=== PATIENT | male | born 1975 | race Caucasian/White ===

== ENCOUNTER 2018-01-06 07:32 | Inpatient (IN) | payer MEDICAID ==
--- NOTE | 2018-01-06 07:48 | ED Physician Chart ---
ED Chief Complaint/HPI - Patient Information Date Seen:: 01/06/18 Time Seen:: 07:35 Chief Complaint:: altered level of consciousness History of Present Illness:: Patient was found in a parking lot with pinpoint pupils and decreased respirations. Patient admits to injecting heroin. Patient was given 2 mg of Narcan intramuscularly and when an IV was started 2 mg of Narcan intravenously Historian:: Patient, Other (granulator tender) Review:: Nurse's Note Reviewed ED Review of Systems - Review of Systems General/Constitutional: No fever, No chills, No weight loss, No weakness, No diaphoresis, No edema, No loss of appetite Skin: No skin lesions, No rash, No bruising Head: No headache, No light-headedness Eyes: No loss of vision, No pain, No diplopia ENT: No earache, No nasal drainage, No sore throat, No tinnitus Neck: No neck pain, No swelling, No thyromegaly, No stiffness, No mass noted Cardio Vascular: No chest pain, No palpitations, No PND, No orthopnea, No edema Pulmonary: No SOB, No cough, No sputum, No wheezing GI: No nausea, No vomiting, No diarrhea, No pain, No melena, No hematochezia, No constipation, No hematemesis G/U: No dysuria, No frequency, No hematuria Musculoskeletal: No bone or joint pain, No back pain, No muscle pain Endocrine: No polyuria, No polydipsia Psychiatric: No prior psych history, No depression, No anxiety, No suicidal ideation Hematopoietic: No bruising, No lymphadenopathy Allergic/Immuno: No urticaria, No angioedema Neurological: No syncope, No focal symptoms, Weakness, No paresthesia, No headache, No seizure, No dizziness, No confusion, No vertigo ED Past Medical History - Past Medical History Past Medical History: No significant medical hx Family History: None Social History: Smoker, Alcohol, Illicit Drug Use Surgical History: None Medication: None Family Medical History - Family Member Mother History Unknown: Yes ED Physical Exam - Physical Examination General/Constitutional: Awake, Well-developed, well-nourished Other Gen/Cons comments:: Moaning; disheveled Head: Atraumatic Eyes: Lids, conjuctiva normal Skin: Nl inspection ENMT: External ears, nose nl, Lips, teeth, gums nl Other Neck comments:: 75 forward flexion of the neck Respiratory: Nl effort/Exclusion, Clear to Auscultation Cardio Vascular: RRR GI: No tenderness/rebounding/guarding, No organomegaly : No CVA tenderness Extremities: No edema Neuro/Psych: No focal deficits Misc: No paraspinal tenderness ED Labs/Radiology/EKG Results - Lab Results Results: Laboratory Results - last 24 hr 01/06/18 01/06/18 01/06/18 07:55 07:55 07:55 WBC 14.9 H RBC 4.79 Hgb 14.3 Hct 43.4 MCV 90.7 MCH 30.0 MCHC Differential 33.0 RDW 13.0 Plt Count 333 MPV 8.0 Band Neutrophils % 10 Neutrophils (Manual) 79 Lymphocytes 5 L Monocytes 6 Platelet Estimate ADEQUATE Sodium 139 Potassium 5.3 H Chloride 100 Carbon Dioxide 23.4 Anion Gap 20.9 H BUN 29 H Creatinine 2.2 H Est GFR ( Amer) 42.8 Est GFR (Non-Af Amer) 35.4 BUN/Creatinine Ratio 13.2 Glucose 88 Whole Bld Lactic Acid 5.04 H* Calcium 8.9 Ethyl Alcohol < 10 - Radiology Results Results: Increased markings left upper lobe ED Assessment - Assessment General Assessment: Patient remained lethargic throughout the emergency department stay. He could barely signed the consent for doing an LP. Patient was placed in the left lateral decubitus position with knees, hips, thighs flexed. Low back was prepped 3 with Betadine solution. 1% Xylocaine about 12 mL is used for local anesthesia in the fourth-fifth lumbar interspace. The lumbar puncture needle was introduced and clear spinal fluid returned. Opening pressure was 20 cm and in tube 1 and the spinal fluid was clear . From tubes to 2-4 the spinal fluid returned increasingly pink in color. ED Septic Shock - . Is Septic Shock (SBP<90, OR Lactate>4 mmol\L) present?: No ED Reassessment (Disposition) - Reassessment Reassessment:: Patient remained lethargic during his stay in the emergency department. No etiology of his lethargy and leukocytosis is a 3 and she had undetermined. Spinal fluid in tube 1 was clear and opening pressure was normal so he does not appear to have meningitis. Reexamination of the abdomen at 1035 revealed present bowel some. The abdomen was soft without guarding but he appeared to have mild generalized tenderness. Chest x-ray showed possible early left upper lobe pneumonia... One contributing factor for the patient's increased lactic acid level is his decreased respirations after injecting heroin which will lead to increased anaerobic metabolism and therefore to lactic acidosis. - Diagnosis Diagnosis:: Altered mental status; heroin use; leukocytosis; lactic acidosis - Patient Disposition Admitted to:: ICU Spoke to:: Charly Lawson Admitting Medical Physician:: Charly Lawson Condition at Disposition:: Stable, Unchanged
[2018-01-06 08:15] LABS: HEMATOCRIT 43.4 % (41.0-60); HEMOGLOBIN 14.3 gm/dL (12-16); MEAN CELL VOLUME 90.7 fl (80-99); PLATELET COUNT 333 Th/cmm (150-400); RED BLOOD COUNT 4.79 Mil/cmm (4.30-5.70)
[2018-01-06 08:19] LABS: ANION GAP 20.9 (7.0-16.0); BUN - UREA NITROGEN 29 mg/dL (7-25); CALCIUM SERUM 8.9 mg/dL (8.6-10.3); CARBON DIOXIDE 23.4 mEq/L (21.0-31.0); CHLORIDE 100 mEq/L (98-107); CREATININE - SERUM 2.2 mg/dL (0.7-1.3); GFR AFRICAN-AMERICAN 42.8 ml/min (>90); GFR NON AFRICAN-AMERICAN 35.4 ml/min; GLUCOSE 88 mg/dL (70-105); POTASSIUM SERUM 5.3 mEq/L (3.5-5.1); SODIUM SERUM 139 mEq/L (136-145)
[2018-01-06 08:20] LABS: WHITE BLOOD COUNT 14.9 Th/cmm (4.8-10.8)
[2018-01-06 08:21] LABS: MANUAL DIFF REQUIRED? YES
[2018-01-06 08:44] LABS: BAND NEUTROPHILE 10 % (0-10); LYMPHOCYTE 5 % (20-50); MONOCYTE 6 % (2-10); NEUTROPHILS 79 % (40-80); PLATELET ESTIMATE ADEQUATE (NORMAL); TOTAL CELLS COUNTED 100
[2018-01-06] MEDS ORDERED: Sodium Chloride 0.9% 1,000 ML IV ONE (08:45)
--- NOTE | 2018-01-06 09:39 | Diagnostic Imaging Report ---
CHEST X-RAY: AP view INDICATION: Pneumonia COMPARISON: None FINDINGS: There is accentuation the left upper lobe interstitial lung markings. No focal consolidation or effusions. Heart size is normal. Degenerative changes of spine are noted. IMPRESSION: Slight increase left upper lobe markings. Faint interstitial infiltrate cannot be excluded. Clinical correlation and follow-up is suggested.
--- NOTE | 2018-01-06 10:06 | Diagnostic Imaging Report ---
Head CT without intravenous contrast Indication: Altered mental status Comparison: None Technique: Axial images were obtained from the vertex to the skull base without IV contrast. Coronal reconstructions were made. Total DLP: 747, [id number] FINDINGS: Images of the brain obtained without contrast demonstrate no acute hemorrhage. No mass lesions identified. The ventricles and basal cisterns are patent. The bass-white matter differentiation is preserved. There is no mass effect or midline shift. No skull fractures identified. No soft tissue swelling. There is an air-fluid level within the left maxillary sinus. There is mucosal thickening of the paranasal sinuses. IMPRESSION: No acute intracranial abnormality. Air-fluid level of the left maxillary sinus. Please correlate for acute sinusitis.
[2018-01-06] MEDS ORDERED: Piperacillin Sodium/Tazobact 3.375 gm Vial IV ONE (11:13)
[2018-01-06] MEDS ORDERED: D5-0.45NS 1,000 ML IV SCH (11:45)
[2018-01-06 12:23] LABS: CSF APPEARANCE CLEAR; CSF COLOR COLORLESS
[2018-01-06 12:24] LABS: CSF RBC 11 /cumm (0-5); CSF WBC 5 /cumm (0-5)
[2018-01-06 12:43] LABS: CSF GLUCOSE 81 mg/dL (40-70); CSF TOTAL PROTEIN 28.4 mg/dL (15-130)
[2018-01-06 13:41] LABS: URINE MICROSCOPIC INDICATED? YES; URINE SOURCE RANDOM
[2018-01-06 14:00] LABS: URINE BLOOD LARGE (NEGATIVE); URINE GLUCOSE (UA) NEGATIVE (NEGATIVE); URINE KETONE NEGATIVE (NEGATIVE); URINE LEUKOCYTE ESTERASE NEGATIVE (NEGATIVE); URINE NITRATE NEGATIVE (NEGATIVE); URINE PROTEIN 100 mg/dL (NEGATIVE); URINE UROBILINOGEN 0.2 E.U./dL (0.2 - 1.0)
[2018-01-06 14:08] LABS: pH 7.34 (7.35-7.45)
[2018-01-06 14:09] LABS: ALLEN TEST Y
[2018-01-06] MEDS: D5-0.9%NS 1,000 ML IV SCH (14:11)
[2018-01-06] MEDS: methylPREDNISolone SS 40 mg Vial IV SCH ×2 (14:42→19:37)
--- NOTE | 2018-01-06 14:47 | Diagnostic Imaging Report ---
CHEST X-RAY: AP view INDICATION: Shortness of breath COMPARISON: 01/06/2018 FINDINGS: Faint left perihilar and suprahilar infiltrates are suspected. No effusions. Heart size is normal. Distended stomach is noted. IMPRESSION: Faint left perihilar and suprahilar infiltrate suspected. Recommend short-term follow up with CT chest. Distended air-filled stomach.
[2018-01-06 14:59] LABS: URINE CLARITY HAZY (CLEAR); URINE COLOR ORANGE
[2018-01-06 15:00] LABS: URINE BACTERIA NONE SEEN /hpf (NONE SEEN); URINE BILIRUBIN NEGATIVE (NEGATIVE); URINE EPITHELIAL CELLS RARE /lpf (FEW); URINE WBC 0-2 /hpf (0-5)
[2018-01-06] MEDS: Albuterol/Ipratropium Neb 3 ML AERS HHN SCH ×2 (15:06→18:56)
[2018-01-06 15:14] LABS: AMPHETAMINE URINE POSITIVE (NEGATIVE); BARBITURATES URINE NEGATIVE (NEGATIVE); BENZODIAZEPINES QUAL URINE POSITIVE (NEGATIVE); CANNABINOID THC POSITIVE (NEGATIVE); COCAINE METABOLITE QUAL URINE NEGATIVE (NEGATIVE); METHADONE URINE NEGATIVE (NEGATIVE); METHAMPHETAMINES QUAL URINE POSITIVE (NEGATIVE); OPIATES (MORPHINE) QUAL. URINE POSITIVE (NEGATIVE); PHENCYCLIDINE (PCP) URINE NEGATIVE (NEGATIVE); TRICYCLICS (TCA) QUAL. URINE NEGATIVE (NEGATIVE)
[2018-01-06 16:03] LABS: EOSINOPHIL SMEAR SOURCE URINE; EOSINOPHILS SMEAR COUNT NONE SEEN (NONE SEEN)
--- NOTE | 2018-01-06 18:01 | History and Physical ---
History of Present Illness - HPI Chief Complaint: ALOC HPI: 42 y/o male who presents to [facility] ER for ALOC. Apparentely the patient was found in a parking lot with pinpoint pupils and decreased respirations. Patient admits to injecting heroin. Patient was given 2 mg of Narcan intramuscularly and when an IV was started 2 mg of Narcan intravenously While in the ER patient underwent CT head and chest xray was done. Please see dictated report. ED Past Medical History - Past Medical History Past Medical History: No significant medical hx Family History: None Social History: Smoker, Alcohol, Illicit Drug Use Surgical History: None Medication: None Initial Labwork revealed .... - Lab Results Results: Laboratory Results - last 24 hr 01/06/18 01/06/18 01/06/18 07:55 07:55 07:55 WBC 14.9 H RBC 4.79 Hgb 14.3 Hct 43.4 MCV 90.7 MCH 30.0 MCHC Differential 33.0 RDW 13.0 Plt Count 333 MPV 8.0 Band Neutrophils % 10 Neutrophils (Manual) 79 Lymphocytes 5 L Monocytes 6 Platelet Estimate ADEQUATE Sodium 139 Potassium 5.3 H Chloride 100 Carbon Dioxide 23.4 Anion Gap 20.9 H BUN 29 H Creatinine 2.2 H Est GFR ( Amer) 42.8 Est GFR (Non-Af Amer) 35.4 BUN/Creatinine Ratio 13.2 Glucose 88 Whole Bld Lactic Acid 5.04 H* Calcium 8.9 Ethyl Alcohol < 10 - Radiology Results Results: Increased markings left upper lobe + UDS Patient was subsequently transferred to ICU for further evaluation and treatment. 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 Pertinent Hx GI: Report: No Pertinent Hx Psych: Report: No Pertinent Hx Musculoskeletal: Report: No Pertinent Hx Rheumatologic: Report: No pertinent Hx Infectious Disease: Report: No Pertinent Hx Renal/: Report: No Pertinent Hx Family Medical History - Family Member Mother History Unknown: Yes Social History Smoke: # pack years (Smoker) Alcohol: Other (Drinker) Drugs: Other (UDS +) Lives: Other (unknown) - Allergies Allergies/Adverse Reactions: Allergies Allergy/AdvReac Type Severity Reaction Status Date / Time No Known Allergies Allergy Verified 01/06/18 07:58 Review of Systems - Review of Systems Constitutional: Report: Fever, Weakness Eyes: Report: No Significant ENT: Report: No Significant Respiratory: Report: No Significant Cardiovascular: Report: No Significant Gastrointestinal: Report: No Significant Genitourinary: Report: No Significant Musculoskeletal: Report: No Significant Skin: Report: No Significant Neurological: Report: Other (ALOC) Physical Exam - Physical Exam HEENT: Report: Ears Nose Throat within normal limits, Pharnyx within normal limits Neck: Report: Within normal limits Cardiovascular Systems: Report: +s1/s2 noted, Regular, Rate and Rhythm Respiratory: Report: Other (dreased breath sounds) Abdomen: Report: Non-tender to palpation Extremities: Report: Non-tender to palpation. Skin: Report: Color of skin is within normal limits Neuro/Psych: Report: Mood affect is within normal limits, A+Ox3, CN II-XII intact - Lab Results All Lab Results last 24 hours: Laboratory Results - last 24 hr 01/06/18 01/06/18 01/06/18 13:14 13:14 13:14 Eos Smear Source Eos Smear Total Cells Specimen Source Sample Site pH pCO2 pO2 HCO3 Base Excess O2 Saturation Suhail Test Vent Rate Inspired O2 Tidal Volume PEEP Pressure (ins/psv/peep) Critical Value Ammonia TSH Urine Source RANDOM Urine Color ORANGE Urine Clarity HAZY Urine pH 5.0 Ur Specific [place] >= 1.030 Urine Protein 100 H Urine Glucose (UA) NEGATIVE Urine Ketones NEGATIVE Urine Blood LARGE H Urine Nitrate NEGATIVE Urine Bilirubin NEGATIVE Urine Urobilinogen 0.2 Ur Leukocyte Esterase NEGATIVE Urine RBC 5-10 H Urine WBC 0-2 Ur Epithelial Cells RARE Urine Bacteria NONE SEEN Ur Random Sodium Urine Creatinine 104.0 Urine Opiates Screen POSITIVE H Urine Methadone Screen NEGATIVE Ur Barbiturates Screen NEGATIVE Ur Tricyclics Screen NEGATIVE Ur Phencyclidine Scrn NEGATIVE Amphetamines Screen POSITIVE H U Methamphetamines Scrn POSITIVE H U Benzodiazepines Scrn POSITIVE H U Cocaine Metab Screen NEGATIVE U Cannabinoids Screen POSITIVE H 01/06/18 01/06/18 01/06/18 13:14 13:14 13:45 Eos Smear Source URINE Eos Smear Total Cells NONE SEEN Specimen Source Sample Site pH pCO2 pO2 HCO3 Base Excess O2 Saturation Suahil Test Vent Rate Inspired O2 Tidal Volume PEEP Pressure (ins/psv/peep) Critical Value Ammonia 50 TSH Urine Source Urine Color Urine Clarity Urine pH Ur Specific [place] Urine Protein Urine Glucose (UA) Urine Ketones Urine Blood Urine Nitrate Urine Bilirubin Urine Urobilinogen Ur Leukocyte Esterase Urine RBC Urine WBC Ur Epithelial Cells Urine Bacteria Ur Random Sodium 77 Urine Creatinine Urine Opiates Screen Urine Methadone Screen Ur Barbiturates Screen Ur Tricyclics Screen Ur Phencyclidine Scrn Amphetamines Screen U Methamphetamines Scrn U Benzodiazepines Scrn U Cocaine Metab Screen U Cannabinoids Screen 01/06/18 01/06/18 13:55 14:30 Eos Smear Source Eos Smear Total Cells Specimen Source Arterial Sample Site Right Radial pH 7.34 L pCO2 40.0 pO2 74.0 L HCO3 21.8 Base Excess -3.9 L O2 Saturation 94.0 Suhail Test Y Vent Rate N/A Inspired O2 21 Tidal Volume N/A PEEP N/A Pressure (ins/psv/peep) N/A Critical Value J.MECCATANCO Ammonia TSH 0.46 Urine Source Urine Color Urine Clarity Urine pH Ur Specific [place] Urine Protein Urine Glucose (UA) Urine Ketones Urine Blood Urine Nitrate Urine Bilirubin Urine Urobilinogen Ur Leukocyte Esterase Urine RBC Urine WBC Ur Epithelial Cells Urine Bacteria Ur Random Sodium Urine Creatinine Urine Opiates Screen Urine Methadone Screen Ur Barbiturates Screen Ur Tricyclics Screen Ur Phencyclidine Scrn Amphetamines Screen U Methamphetamines Scrn U Benzodiazepines Scrn U Cocaine Metab Screen U Cannabinoids Screen - Assessment Assessment: ALOC Encephalopathy +UDS PNA Leukocystosis w/ bandemia Dehyration UTI Hyperkalemia - Plan Plan: Admit to ICU IV fluid hydration pulmonary consult nephrology consult neurology consult repeat CBC,CMP tomorrow CXR
[2018-01-06] MEDS: Budesonide 0.5 Mg/2 mL Ud HHN SCH (18:56)
[2018-01-07] MEDS: methylPREDNISolone SS 40 mg Vial IV SCH ×5 (01:24→23:45)
[2018-01-07] MEDS: D5-0.9%NS 1,000 ML IV SCH ×3 (01:24→23:46)
--- NOTE | 2018-01-07 02:19 | Consultation ---
DATE OF CONSULTATION: 01/06/2018 PULMONARY CONSULTATION NOTE REASON FOR CONSULTATION: Help the patient with shortness of breath. CONSULT NOTE: This is a 42-year-old gentleman who was brought to the Emergency Room. He was found in a parking lot with pinpoint pupils with decreased respiration. Subsequently, the patient was brought to the hospital. He was given Narcan and appears to be slightly waking up. Did complain of taking heroin. Unfortunately, the patient is still quite lethargic, though arousable and meaningful detailed history from the patient is not available except for use of heroin. PAST MEDICAL HISTORY: Other past medical history is none. SOCIAL HISTORY: Smoking history is positive, though could not quantify; history of alcoholism, could not quantify; history of illicit drug use. PHYSICAL EXAMINATION: GENERAL: This is an elderly looking gentleman, arousable but quite lethargic, not in any distress, audibly wheezing. VITAL SIGNS: The patient's recorded vitals, temperature is 97.5, blood pressure of 98.72, saturation 97 on room air. HEENT: Examination of the head is essentially unremarkable. Pupils appear to be equal and reacting to light. Conjunctivae slightly pallor. Oral cavity with dry mouth, otherwise small oropharyngeal opening. NECK: No nodes in the neck could be palpated. CHEST: Shows scattered wheezing with diminished air entry. HEART: Regular. ABDOMEN: Soft, nontender. LABORATORY DATA: Chest x-ray is pending. White count is 14.9. Potassium is 5.3 and lactic acid is 5.04. ASSESSMENT: 1. The patient has acute asthmatic bronchitis. 2. Questionable developing pneumonitis. 3. Altered level of consciousness secondary to polydrug use as well as history of alcoholism and history of heavy smoking. PLANS AND SUGGESTIONS: We will increase bronchodilator therapy, inhaled therapy, welch culture, broad spectrum antibiotic, watch mental status closely. If necessary, we will repeat another Narcan and also, we will have p.r.n. BiPAP standby and go from there. JOB# [id number]
[2018-01-07 04:38] LABS: HEMOGLOBIN 13.7 gm/dL (12-16); MANUAL DIFF REQUIRED? YES
[2018-01-07 04:44] LABS: MEAN CELL VOLUME 90.2 fl (80-99); MEAN CORPUSCULAR HEMOGLOBIN 30.1 pg (26.0-30.0); MEAN CORPUSCULAR HGB CONC 33.4 pg (28.0-36.0); MEAN PLATELET VOLUME 8.5 fl; RED BLOOD COUNT 4.55 Mil/cmm (4.30-5.70)
[2018-01-07 04:50] LABS: PLATELET COUNT 246 Th/cmm (150-400)
[2018-01-07 04:55] LABS: ALB/GLOB RATIO 1.2 (1.0-1.8); ALBUMIN 3.3 gm/dL (4.2-5.5); ALKALINE PHOSPHATASE 75 U/L (34-104); ANION GAP 12.4 (7.0-16.0); BILIRUBIN,TOTAL 0.9 mg/dL (0.3-1.0); BUN - UREA NITROGEN 28 mg/dL (7-25); CALCIUM SERUM 8.4 mg/dL (8.6-10.3); CARBON DIOXIDE 20.6 mEq/L (21.0-31.0); CHLORIDE 103 mEq/L (98-107); CREATININE - SERUM 1.5 mg/dL (0.7-1.3); GFR AFRICAN-AMERICAN > 60.0 ml/min (>90); GFR NON AFRICAN-AMERICAN 55.1 ml/min; MAGNESIUM 2.4 mg/dL (1.9-2.7); PHOSPHOROUS 2.9 mg/dL (2.5-5.0); SGOT 457 U/L (13-39); SGPT/ALT 203 U/L (7-52); SODIUM SERUM 132 mEq/L (136-145); TOTAL PROTEIN,SERUM 6.1 gm/dL (6.0-8.3)
[2018-01-07 05:02] LABS: GLUCOSE 164 mg/dL (70-105)
[2018-01-07 05:22] LABS: BAND NEUTROPHILE 18 % (0-10); LYMPHOCYTE 3 % (20-50); MONOCYTE 1 % (2-10); NEUTROPHILS 78 % (40-80); PLATELET ESTIMATE ADEQUATE (NORMAL); TOTAL CELLS COUNTED 100
[2018-01-07] MEDS: Budesonide 0.5 Mg/2 mL Ud HHN SCH ×2 (07:41→18:59)
[2018-01-07] MEDS: Albuterol/Ipratropium Neb 3 ML AERS HHN SCH ×4 (07:41→18:59)
--- NOTE | 2018-01-07 07:42 | Diagnostic Imaging Report ---
Renal ultrasound HISTORY: Abnormal renal function test The right kidney is normal in size (10.5 x 5.4 x 5.8 cm). There is an increase in cortical echogenicity. No focal lesions. No hydronephrosis. The left kidney is normal in size (10.5 x 6.2 x 5.8 cm). Increased cortical echogenicity. However, no focal lesions are seen. No hydronephrosis. The exam of the urinary bladder demonstrates several low-level intraluminal echoes. The findings should be correlated with urinalysis. IMPRESSION: 1. Bilateral increased cortical echogenicity. Retention of normal renal sizes. However, the findings may be associated with chronic parenchymal disease. 2. Low-level intraluminal echoes seen within the urinary bladder. The finding should be correlated with urinalysis.
--- NOTE | 2018-01-07 08:29 | General Progress Note ---
Subjective - Review of Systems Service Date: 01/07/18 Subjective: Patient is more awake, alert this morning. Still fatigue and weak. decreased appetite. on Clear liquid diet. Objective - Results Result Diagrams: 01/07/18 04:10 01/07/18 04:10 Recent Labs: Laboratory Last Values WBC 15.0 Th/cmm (4.8-10.8) H 01/07/18 04:10 RBC 4.55 Mil/cmm (4.30-5.70) 01/07/18 04:10 Hgb 13.7 gm/dL (12-16) 01/07/18 04:10 Hct 41.0 % (41.0-60) 01/07/18 04:10 MCV 90.2 fl (80-99) 01/07/18 04:10 MCH 30.1 pg (26.0-30.0) H 01/07/18 04:10 MCHC Differential 33.4 pg (28.0-36.0) 01/07/18 04:10 RDW 13.0 % (11.5-20.0) 01/07/18 04:10 Plt Count 246 Th/cmm (150-400) D 01/07/18 04:10 MPV 8.5 fl 01/07/18 04:10 Band Neutrophils % 18 % (0-10) H 01/07/18 04:10 Neutrophils (Manual) 78 % (40-80) 01/07/18 04:10 Lymphocytes 3 % (20-50) L 01/07/18 04:10 Monocytes 1 % (2-10) L 01/07/18 04:10 Platelet Estimate ADEQUATE (NORMAL) 01/07/18 04:10 Eos Smear Source URINE 01/06/18 13:14 Eos Smear Total Cells NONE SEEN (NONE SEEN) 01/06/18 13:14 Specimen Source Arterial 01/06/18 13:55 Sample Site Right Radial 01/06/18 13:55 pH 7.34 (7.35-7.45) L 01/06/18 13:55 pCO2 40.0 mmHg (35.0-45.0) 01/06/18 13:55 pO2 74.0 mmHg (80.0-100.0) L 01/06/18 13:55 HCO3 21.8 mEq/L (20.0-26.0) 01/06/18 13:55 Base Excess -3.9 mEq/L (-3.0-3.0) L 01/06/18 13:55 O2 Saturation 94.0 % (92.0-100.0) 01/06/18 13:55 Suhail Test Y 01/06/18 13:55 Vent Rate N/A 01/06/18 13:55 Inspired O2 21 01/06/18 13:55 Tidal Volume N/A 01/06/18 13:55 PEEP N/A 01/06/18 13:55 Pressure (ins/psv/peep) N/A 01/06/18 13:55 Critical Value JANET 01/06/18 13:55 Sodium 132 mEq/L (136-145) L 01/07/18 04:10 Potassium 4.0 mEq/L (3.5-5.1) 01/07/18 04:10 Chloride 103 mEq/L (98-107) 01/07/18 04:10 Carbon Dioxide 20.6 mEq/L (21.0-31.0) L 01/07/18 04:10 Anion Gap 12.4 (7.0-16.0) 01/07/18 04:10 BUN 28 mg/dL (7-25) H 01/07/18 04:10 Creatinine 1.5 mg/dL (0.7-1.3) H 01/07/18 04:10 Est GFR ( Amer) > 60.0 ml/min (>90) 01/07/18 04:10 Est GFR (Non-Af Amer) 55.1 ml/min 01/07/18 04:10 BUN/Creatinine Ratio 18.7 01/07/18 04:10 Glucose 164 mg/dL (70-105) H D 01/07/18 04:10 Whole Bld Lactic Acid 2.42 mmol/L (0.60-1.99) H* 01/07/18 04:10 Calcium 8.4 mg/dL (8.6-10.3) L 01/07/18 04:10 Phosphorus 2.9 mg/dL (2.5-5.0) 01/07/18 04:10 Magnesium 2.4 mg/dL (1.9-2.7) 01/07/18 04:10 Total Bilirubin 0.9 mg/dL (0.3-1.0) 01/07/18 04:10 AST 457 U/L (13-39) H 01/07/18 04:10 ALT 203 U/L (7-52) H 01/07/18 04:10 Alkaline Phosphatase 75 U/L (34-104) 01/07/18 04:10 Ammonia 55 umol/L (16-53) H 01/07/18 04:10 Total Protein 6.1 gm/dL (6.0-8.3) 01/07/18 04:10 Albumin 3.3 gm/dL (4.2-5.5) L 01/07/18 04:10 Globulin 2.8 gm/dL 01/07/18 04:10 Albumin/Globulin Ratio 1.2 (1.0-1.8) 01/07/18 04:10 Lipase 35 U/L (11-82) 01/06/18 07:55 TSH 0.46 uIU/ml (0.34-5.60) 01/06/18 14:30 Urine Source RANDOM 01/06/18 13:14 Urine Color ORANGE 01/06/18 13:14 Urine Clarity HAZY (CLEAR) 01/06/18 13:14 Urine pH 5.0 (4.6 - 8.0) 01/06/18 13:14 Ur Specific [place] >= 1.030 (1.005-1.030) 01/06/18 13:14 Urine Protein 100 mg/dL (NEGATIVE) H 01/06/18 13:14 Urine Glucose (UA) NEGATIVE mg/dL (NEGATIVE) 01/06/18 13:14 Urine Ketones NEGATIVE mg/dL (NEGATIVE) 01/06/18 13:14 Urine Blood LARGE (NEGATIVE) H 01/06/18 13:14 Urine Nitrate NEGATIVE (NEGATIVE) 01/06/18 13:14 Urine Bilirubin NEGATIVE (NEGATIVE) 01/06/18 13:14 Urine Urobilinogen 0.2 E.U./dL (0.2 - 1.0) 01/06/18 13:14 Ur Leukocyte Esterase NEGATIVE (NEGATIVE) 01/06/18 13:14 Urine RBC 5-10 /hpf (0-5) H 01/06/18 13:14 Urine WBC 0-2 /hpf (0-5) 01/06/18 13:14 Ur Epithelial Cells RARE /lpf (FEW) 01/06/18 13:14 Urine Bacteria NONE SEEN /hpf (NONE SEEN) 01/06/18 13:14 Ur Random Sodium 77 mmol/L 01/06/18 13:14 Urine Creatinine 104.0 mg/dl (39.0-259.0) 01/06/18 13:14 CSF Appearance CLEAR 01/06/18 10:08 CSF Color COLORLESS 01/06/18 10:08 CSF WBC 5 /cumm (0-5) 01/06/18 10:08 CSF RBC 11 /cumm (0-5) H 01/06/18 10:08 CSF Glucose 81 mg/dL (40-70) H 01/06/18 10:08 CSF Total Protein 28.4 mg/dL (15-130) 01/06/18 10:08 Urine Opiates Screen POSITIVE (NEGATIVE) H 01/06/18 13:14 Urine Methadone Screen NEGATIVE (NEGATIVE) 01/06/18 13:14 Ur Barbiturates Screen NEGATIVE (NEGATIVE) 01/06/18 13:14 Ur Tricyclics Screen NEGATIVE (NEGATIVE) 01/06/18 13:14 Ur Phencyclidine Scrn NEGATIVE (NEGATIVE) 01/06/18 13:14 Amphetamines Screen POSITIVE (NEGATIVE) H 01/06/18 13:14 U Methamphetamines Scrn POSITIVE (NEGATIVE) H 01/06/18 13:14 U Benzodiazepines Scrn POSITIVE (NEGATIVE) H 01/06/18 13:14 U Cocaine Metab Screen NEGATIVE (NEGATIVE) 01/06/18 13:14 U Cannabinoids Screen POSITIVE (NEGATIVE) H 01/06/18 13:14 Ethyl Alcohol < 10 mg/dL (0-10) 01/06/18 07:55 - Physical Exam Vitals and I&O: Vital Signs Temp 97.8 F 01/07/18 04:00 Pulse 102 01/07/18 07:53 Resp 26 01/07/18 07:53 BP 118/78 01/07/18 06:00 Pulse Ox 99 01/07/18 07:53 Intake & Output 01/06/18 01/07/18 01/07/18 18:59 06:59 18:59 Intake Total 1435 1915 680 Output Total 700 2050 Balance 735 -135 680 Weight (lbs) 68.492 kg 71.214 kg Intake: Intake, IV Amount 435 715 680 D5-0.9%Ns 1,000 ml @ 100 335 665 630 mls/hr IV .Q10H [facility] Rx#: [id number] Piperacillin Sodium/ 100 50 50 Tazobact 3.375 gm In Sodium Chloride 0.9% 50 ml @ 100 mls/hr IV Q6HR [facility] Rx#:[id number] Oral 1000 1200 Output: Urine 700 2050 Other: # Voids 2 # Bowel Movements 0 Weight Source Bedscale Bedscale Active Medications: Current Medications Albuterol/Ipratropium (Duoneb Neb) 3 ml HHN [id number] [facility] Stop: 03/07/18 14:59 Last Admin: 01/07/18 07:41 Dose: 3 ml Budesonide (Pulmicort) 0.5 mg HHN BIDRT [facility] Stop: 03/07/18 18:59 Last Admin: 01/07/18 07:41 Dose: 0.5 mg Piperacillin Sod/Tazobactam (Sod 3.375 gm/ Sodium Chloride) 50 mls @ 100 mls/ hr IV Q6HR [facility] Stop: 03/07/18 11:59 Last Infusion: 01/07/18 07:43 Dose: Infused Dextrose/Sodium Chloride (D5-0.9%Ns) 1,000 mls @ 100 mls/hr IV .Q10H [facility] Stop: 03/07/18 13:59 Last Infusion: 01/07/18 07:42 Dose: 100 mls/hr Lorazepam (Ativan) 2 mg IVP Q4HR PRN; Protocol PRN Reason: Agitation Stop: 03/07/18 14:54 Methylprednisolone Sodium Succinate (Solu-Medrol) 40 mg IV Q6HR [facility] Stop: 01/08/18 18:01 Last Admin: 01/07/18 05:42 Dose: 40 mg Miscellaneous (Zosyn Iv Per Pharmacy) 1 ea [facility] PRN PRN PRN Reason: PROTOCOL Stop: 03/07/18 10:37 General: Alert, Oriented x3, No acute distress HEENT: Atraumatic, PERRLA, EOMI Neck: Supple, no JVD, no Thyromegaly Cardiovascular: Regular rate, Normal S1, Normal S2 Lungs: Clear to auscultation Abdomen: Bowel sounds, Soft Extremities: no Clubbing, no Cyanosis, no Edema - Procedures Procedures: Procedures Procedure Code Date DRAINAGE OF SPINAL CANAL, PERCUTANEOUS APPROACH, DIAGNOSTIC [id number] 01/06/18 SPINAL FLUID TAP DIAGNOSTIC [id number] 01/06/18 Assessment/Plan - Assessment Assessment: ALOC Encephalopathy +UDS PNA Leukocystosis w/ bandemia Dehyration UTI Hyperkalemia elevated LFTs hepatitis - Plan Plan: Admit to ICU IV fluid hydration pulmonary consult nephrology consult neurology consult repeat CBC,CMP tomorrow CXR U/S abd acute hepatitis panel amylase,lipase, PT/INR GI consult
--- NOTE | 2018-01-07 08:55 | Consultation ---
DATE OF CONSULTATION: 01/06/2018 [employer] [employer] SCIENTIST: Js Mahajan MD REASON FOR CONSULTATION: Worsening kidney function, electrolyte imbalance and fluid management. HISTORY OF PRESENT ILLNESS: This is a 42-year-old male with past medical history none, who was found unconscious in a parking lot and was brought to the Emergency Room. A few hours prior to admission, the patient was found with altered level of consciousness and some respiratory depression in the parking lot. He was then brought to the Emergency Room. He had a history of recent heroin abuse. He received Narcan at the Emergency Room with slight improvement in his mentation. CT scan of the head was done, which showed no acute disease. Chest x-ray revealed faint infiltrates. He also had an LP done which was unremarkable. His serum white count was 14.9. His other lab results showed a BUN/creatinine of 29/2.2 and potassium of 5.3. Lactic acid initially was 5.04 and down to 3.74. PAST MEDICAL HISTORY: Heroin abuse. MEDICATIONS: Unknown at the present time. SOCIAL AND FAMILY HISTORY: Also unable to obtain from the patient because he still remains lethargic. REVIEW OF SYSTEMS: Unable to decipher because of the same reason. PHYSICAL EXAMINATION: GENERAL: The patient remains stuporous, barely responsive, but not in any form of distress. VITAL SIGNS: His blood pressure is 98/72, pulse 103, temperature 97.5 degrees. SKIN: Poor turgor, warm, no rash, no jaundice, but extensive tattoos. HEENT: Head normocephalic, atraumatic. Eyes, unable to assess his extraocular muscles. Pupils are now equal and accommodates. Nose, midline nasal septum. Mouth; dry mucosa, adequate dentition. NECK: Supple, no adenopathy, no thyromegaly, no bruits. Trachea palpated in the midline. CHEST AND CARDIOVASCULAR SYSTEM: S1, S2. No rub, murmur nor gallop appreciated. Point of maximal impulse fifth intercostal space, left midclavicular line. No abdominal or femoral bruits appreciated. LUNGS: Equal expansion, no use of accessory muscles. No supraclavicular retractions. Decreased breath sounds, but clear to auscultation without any wheeze. ABDOMEN: Flat, soft. Positive for bowel sounds. No bruits either diastolic or systolic. RECTAL: Deferred at the present time. GENITOURINARY: Normal appearing male genitalia. MUSCULOSKELETAL: No effusions present in his joints, but unable to assess his range of motion. EXTREMITIES: No evidence of any edema nor cyanosis. He has a palpable femoral, popliteal and dorsalis pedis pulses. He has a left leg bracelet. NEUROLOGIC: As mentioned, the patient is quite stuporous, so I was not able to pursue further my neuro exam. LABORATORY DATA: Labs did reveal white count 14.9, hemoglobin 14.3, hematocrit 43.4, platelets 333. Sodium is 139, potassium 5.3, chloride is 100, CO2 is 23, BUN 29, creatinine 2.2, glucose is 88. Lactic acid 5.04 to 3.74, calcium 8.9. IMPRESSION: 1. Acute kidney injury, MDRD GFR 35.4 mL per minute. The patient has been abusing heroin. He may have developed encephalopathy with depressed mental status. He was not able to eat nor drink adequately and eventually developed dehydration. This then lead to development of prerenal azotemia, which eventually progressed to acute tubular injury. 2. Altered level of consciousness secondary to heroin abuse. 3. Hyperkalemia secondary to kidney failure. 4. Elevated lactic acid secondary to increased anaerobic perfusion brought about by significant respiratory depression with possibly hypercapnic respiration. 5. Leukocytosis, the patient does not look septic, so this could possibly be due to leukemoid reaction. PLAN: 1. Increase IV fluids. 2. UA, C and S. 3. Urine spot sodium, eosinophils and creatinine. 4. Urine microalbumin to creatinine ratio. 5. Renal ultrasound. 6. Follow up electrolytes and CBC. Thank you, Dr. Lawson for this consult. We will follow the patient closely with you. JOB# [id number]
[2018-01-07 08:56] LABS: PROTHROMBIN TIME (TEST) 10.4 SECONDS (9.5-11.5)
[2018-01-07 09:49] LABS: ALLEN TEST YES
[2018-01-07 14:25] LABS: ACETAMINOPHEN < 10.0 ug/mL (10.0-30.0); SALICYLATES (ASPIRIN) < 25.0 mg/L (30.0-100.0)
--- NOTE | 2018-01-07 15:04 | General Progress Note ---
Subjective - Review of Systems Service Date: 01/07/18 Subjective: sleeping, arousable Objective - Results Result Diagrams: 01/07/18 04:10 01/07/18 04:10 Recent Labs: Laboratory Last Values WBC 15.0 Th/cmm (4.8-10.8) H 01/07/18 04:10 RBC 4.55 Mil/cmm (4.30-5.70) 01/07/18 04:10 Hgb 13.7 gm/dL (12-16) 01/07/18 04:10 Hct 41.0 % (41.0-60) 01/07/18 04:10 MCV 90.2 fl (80-99) 01/07/18 04:10 MCH 30.1 pg (26.0-30.0) H 01/07/18 04:10 MCHC Differential 33.4 pg (28.0-36.0) 01/07/18 04:10 RDW 13.0 % (11.5-20.0) 01/07/18 04:10 Plt Count 246 Th/cmm (150-400) D 01/07/18 04:10 MPV 8.5 fl 01/07/18 04:10 Band Neutrophils % 18 % (0-10) H 01/07/18 04:10 Neutrophils (Manual) 78 % (40-80) 01/07/18 04:10 Lymphocytes 3 % (20-50) L 01/07/18 04:10 Monocytes 1 % (2-10) L 01/07/18 04:10 Platelet Estimate ADEQUATE (NORMAL) 01/07/18 04:10 Eos Smear Source URINE 01/06/18 13:14 Eos Smear Total Cells NONE SEEN (NONE SEEN) 01/06/18 13:14 PT 10.4 SECONDS (9.5-11.5) 01/07/18 04:10 INR 1.00 (0.5-1.4) 01/07/18 04:10 Specimen Source Arterial 01/07/18 09:42 Sample Site Right Radial 01/07/18 09:42 pH 7.40 (7.35-7.45) 01/07/18 09:42 pCO2 40.0 mmHg (35.0-45.0) 01/07/18 09:42 pO2 68.0 mmHg (80.0-100.0) L 01/07/18 09:42 HCO3 24.8 mEq/L (20.0-26.0) 01/07/18 09:42 Base Excess 0.0 mEq/L (-3.0-3.0) 01/07/18 09:42 O2 Saturation 93.0 % (92.0-100.0) 01/07/18 09:42 Suhail Test YES 01/07/18 09:42 Vent Rate NA 01/07/18 09:42 Inspired O2 21 01/07/18 09:42 Tidal Volume NA 01/07/18 09:42 PEEP NA 01/07/18 09:42 Pressure (ins/psv/peep) NA 01/07/18 09:42 Critical Value E.BAE 01/07/18 09:42 Sodium 132 mEq/L (136-145) L 01/07/18 04:10 Potassium 4.0 mEq/L (3.5-5.1) 01/07/18 04:10 Chloride 103 mEq/L (98-107) 01/07/18 04:10 Carbon Dioxide 20.6 mEq/L (21.0-31.0) L 01/07/18 04:10 Anion Gap 12.4 (7.0-16.0) 01/07/18 04:10 BUN 28 mg/dL (7-25) H 01/07/18 04:10 Creatinine 1.5 mg/dL (0.7-1.3) H 01/07/18 04:10 Est GFR ( Amer) > 60.0 ml/min (>90) 01/07/18 04:10 Est GFR (Non-Af Amer) 55.1 ml/min 01/07/18 04:10 BUN/Creatinine Ratio 18.7 01/07/18 04:10 Glucose 164 mg/dL (70-105) H D 01/07/18 04:10 Whole Bld Lactic Acid 2.42 mmol/L (0.60-1.99) H* 01/07/18 04:10 Calcium 8.4 mg/dL (8.6-10.3) L 01/07/18 04:10 Phosphorus 2.9 mg/dL (2.5-5.0) 01/07/18 04:10 Magnesium 2.4 mg/dL (1.9-2.7) 01/07/18 04:10 Total Bilirubin 0.9 mg/dL (0.3-1.0) 01/07/18 04:10 AST 457 U/L (13-39) H 01/07/18 04:10 ALT 203 U/L (7-52) H 01/07/18 04:10 Alkaline Phosphatase 75 U/L (34-104) 01/07/18 04:10 Ammonia 55 umol/L (16-53) H 01/07/18 04:10 Total Protein 6.1 gm/dL (6.0-8.3) 01/07/18 04:10 Albumin 3.3 gm/dL (4.2-5.5) L 01/07/18 04:10 Globulin 2.8 gm/dL 01/07/18 04:10 Albumin/Globulin Ratio 1.2 (1.0-1.8) 01/07/18 04:10 Amylase 498 U/L (29-103) H 01/07/18 04:10 Lipase 25 U/L (11-82) 01/07/18 04:10 TSH 0.46 uIU/ml (0.34-5.60) 01/06/18 14:30 Urine Source RANDOM 01/06/18 13:14 Urine Color ORANGE 01/06/18 13:14 Urine Clarity HAZY (CLEAR) 01/06/18 13:14 Urine pH 5.0 (4.6 - 8.0) 01/06/18 13:14 Ur Specific [place] >= 1.030 (1.005-1.030) 01/06/18 13:14 Urine Protein 100 mg/dL (NEGATIVE) H 01/06/18 13:14 Urine Glucose (UA) NEGATIVE mg/dL (NEGATIVE) 01/06/18 13:14 Urine Ketones NEGATIVE mg/dL (NEGATIVE) 01/06/18 13:14 Urine Blood LARGE (NEGATIVE) H 01/06/18 13:14 Urine Nitrate NEGATIVE (NEGATIVE) 01/06/18 13:14 Urine Bilirubin NEGATIVE (NEGATIVE) 01/06/18 13:14 Urine Urobilinogen 0.2 E.U./dL (0.2 - 1.0) 01/06/18 13:14 Ur Leukocyte Esterase NEGATIVE (NEGATIVE) 01/06/18 13:14 Urine RBC 5-10 /hpf (0-5) H 01/06/18 13:14 Urine WBC 0-2 /hpf (0-5) 01/06/18 13:14 Ur Epithelial Cells RARE /lpf (FEW) 01/06/18 13:14 Urine Bacteria NONE SEEN /hpf (NONE SEEN) 01/06/18 13:14 Ur Random Sodium 77 mmol/L 01/06/18 13:14 Urine Creatinine 104.0 mg/dl (39.0-259.0) 01/06/18 13:14 CSF Appearance CLEAR 01/06/18 10:08 CSF Color COLORLESS 01/06/18 10:08 CSF WBC 5 /cumm (0-5) 01/06/18 10:08 CSF RBC 11 /cumm (0-5) H 01/06/18 10:08 CSF Glucose 81 mg/dL (40-70) H 01/06/18 10:08 CSF Total Protein 28.4 mg/dL (15-130) 01/06/18 10:08 Salicylates < 25.0 mg/L (30.0-100.0) L 01/07/18 04:10 Urine Opiates Screen POSITIVE (NEGATIVE) H 01/06/18 13:14 Urine Methadone Screen NEGATIVE (NEGATIVE) 01/06/18 13:14 Acetaminophen < 10.0 ug/mL (10.0-30.0) L 01/07/18 04:10 Ur Barbiturates Screen NEGATIVE (NEGATIVE) 01/06/18 13:14 Ur Tricyclics Screen NEGATIVE (NEGATIVE) 01/06/18 13:14 Ur Phencyclidine Scrn NEGATIVE (NEGATIVE) 01/06/18 13:14 Amphetamines Screen POSITIVE (NEGATIVE) H 01/06/18 13:14 U Methamphetamines Scrn POSITIVE (NEGATIVE) H 01/06/18 13:14 U Benzodiazepines Scrn POSITIVE (NEGATIVE) H 01/06/18 13:14 U Cocaine Metab Screen NEGATIVE (NEGATIVE) 01/06/18 13:14 U Cannabinoids Screen POSITIVE (NEGATIVE) H 01/06/18 13:14 Ethyl Alcohol < 10 mg/dL (0-10) 01/06/18 07:55 - Physical Exam Vitals and I&O: Vital Signs Temp 98 F 01/07/18 07:00 Pulse 91 01/07/18 14:48 Resp 22 01/07/18 14:48 BP 107/73 01/07/18 12:00 Pulse Ox 97 01/07/18 14:48 Intake & Output 01/06/18 01/07/18 01/07/18 18:59 06:59 18:59 Intake Total 1435 1915 1050 Output Total 700 2050 Balance 735 -135 1050 Weight (lbs) 68.492 kg 71.214 kg Intake: Intake, IV Amount 984 431 7893 D5-0.9%Ns 1,000 ml @ 100 241 485 0030 mls/hr IV .Q10H [facility] Rx#: [id number] Piperacillin Sodium/ 100 50 50 Tazobact 3.375 gm In Sodium Chloride 0.9% 50 ml @ 100 mls/hr IV Q6HR [facility] Rx#:[id number] Oral 1000 1200 Output: Urine 700 2050 Other: # Voids 2 # Bowel Movements 0 Weight Source Bedscale Bedscale Active Medications: Current Medications Albuterol/Ipratropium (Duoneb Neb) 3 ml HHN [id number] [facility] Stop: 03/07/18 14:59 Last Admin: 01/07/18 14:48 Dose: 3 ml Budesonide (Pulmicort) 0.5 mg HHN BIDRT [facility] Stop: 03/07/18 18:59 Last Admin: 01/07/18 07:41 Dose: 0.5 mg Piperacillin Sod/Tazobactam (Sod 3.375 gm/ Sodium Chloride) 50 mls @ 100 mls/ hr IV Q6HR [facility] Stop: 03/07/18 11:59 Last Admin: 01/07/18 11:38 Dose: 100 mls/hr Dextrose/Sodium Chloride (D5-0.9%Ns) 1,000 mls @ 100 mls/hr IV .Q10H [facility] Stop: 03/07/18 13:59 Last Admin: 01/07/18 11:37 Dose: 100 mls/hr Lorazepam (Ativan) 2 mg IVP Q4HR PRN; Protocol PRN Reason: Agitation Stop: 03/07/18 14:54 Methylprednisolone Sodium Succinate (Solu-Medrol) 40 mg IV Q6HR [facility] Stop: 01/08/18 18:01 Last Admin: 01/07/18 11:37 Dose: 40 mg Miscellaneous (Zosyn Iv Per Pharmacy) 1 ea [facility] PRN PRN PRN Reason: PROTOCOL Stop: 03/07/18 10:37 Pantoprazole Sodium (Protonix) 40 mg IVP QDAC [facility] Stop: 03/08/18 08:59 Last Admin: 01/07/18 09:31 Dose: 40 mg General: Alert, Oriented x3, No acute distress HEENT: Atraumatic, PERRLA, EOMI Neck: Supple, no JVD, no Thyromegaly Cardiovascular: Regular rate, Normal S1, Normal S2 Lungs: Clear to auscultation Abdomen: Bowel sounds, Soft Extremities: no Clubbing, no Cyanosis, no Edema Neurological: Sensation intact Psych/Mental Status: Mood NL - Procedures Procedures: Procedures Procedure Code Date DRAINAGE OF SPINAL CANAL, PERCUTANEOUS APPROACH, DIAGNOSTIC [id number] 01/06/18 SPINAL FLUID TAP DIAGNOSTIC 01227 01/06/18 Assessment/Plan - Assessment Assessment: YEE ALOC 2/2 Heroin abuse Lactic acidosis Leukemoid Rxn - Plan Plan: Lab - Result Diagrams 01/07/18 04:10 01/07/18 04:10 Current Medications Albuterol/Ipratropium (Duoneb Neb) 3 ml HHN [id number] [facility] Stop: 03/07/18 14:59 Last Admin: 01/07/18 14:48 Dose: 3 ml Budesonide (Pulmicort) 0.5 mg HHN BIDRT [facility] Stop: 03/07/18 18:59 Last Admin: 01/07/18 07:41 Dose: 0.5 mg Piperacillin Sod/Tazobactam (Sod 3.375 gm/ Sodium Chloride) 50 mls @ 100 mls/ hr IV Q6HR [facility] Stop: 03/07/18 11:59 Last Admin: 01/07/18 11:38 Dose: 100 mls/hr Dextrose/Sodium Chloride (D5-0.9%Ns) 1,000 mls @ 100 mls/hr IV .Q10H [facility] Stop: 03/07/18 13:59 Last Admin: 01/07/18 11:37 Dose: 100 mls/hr Lorazepam (Ativan) 2 mg IVP Q4HR PRN; Protocol PRN Reason: Agitation Stop: 03/07/18 14:54 Methylprednisolone Sodium Succinate (Solu-Medrol) 40 mg IV Q6HR [facility] Stop: 01/08/18 18:01 Last Admin: 01/07/18 11:37 Dose: 40 mg Miscellaneous (Zosyn Iv Per Pharmacy) 1 ea [facility] PRN PRN PRN Reason: PROTOCOL Stop: 03/07/18 10:37 Pantoprazole Sodium (Protonix) 40 mg IVP QDAC [facility] Stop: 03/08/18 08:59 Last Admin: 01/07/18 09:31 Dose: 40 mg kidney fnc improving /1.5 UOP has picked up f/u electrolytes, cbc
--- NOTE | 2018-01-08 03:53 | Progress Notes ---
DATE: 01/07/2018 PULMONARY PROGRESS NOTE PROBLEM LIST: 1. Acute intoxication with illicit drug use. 2. COPD with acute exacerbation. SYMPTOMS: The patient is currently much more awake, in no respiratory distress, etc. Denies of any other symptomatology at this particular time and coughing and wheezing is much better. OBJECTIVE: VITAL SIGNS: The patient's recorded vitals: Afebrile, pulse is 90, saturation 98% on room air. ENT: Shows no new changes. CHEST: Shows much clear with diminished air entry. HEART: Regular. ABDOMEN: Soft, nontender. LABORATORY DATA: White count is 15,000, hemoglobin of 13 and neutrophil is 80%. ABG, room air pO2 is 64. ASSESSMENT: The patient clinically appears doing much better with improving renal function and improving respiratory status. PLANS AND SUGGESTIONS: Okay respiratory garcia, to be followed up on the ELY or regular ____ status and we will repeat the chest x-ray. JOB# [id number]
--- NOTE | 2018-01-08 04:39 | Consultation ---
DATE OF CONSULTATION: 01/07/2018 INPATIENT GASTROINTESTINAL CONSULTATION REFERRING PHYSICIAN: Dr. Charly Lawson. REASON FOR CONSULTATION: Elevated LFTs. HISTORY OF PRESENT ILLNESS: A 42-year-old male, who was found down in a parking lot with an injection of heroin. The patient was given Narcan and responded. The patient is now in the ICU. He denies having any nausea, vomiting, diarrhea, constipation, melena, hematochezia, hematemesis, or coffee-ground emesis. Denies abdominal pain. Denies known history of liver disease. PAST MEDICAL HISTORY: None. PAST SURGICAL HISTORY: None to add recently. FAMILY HISTORY: Noncontributory. SOCIAL HISTORY: He denies tobacco, alcohol, or IV drug usage, although he was admitted with heroin injection, possible overdose. ALLERGIES: None. CURRENT MEDICATIONS: Pulmicort, Ativan, Solu-Medrol, Zosyn, and Protonix. REVIEW OF SYSTEMS: Ten-point review of system was performed and the pertinent positive was the heroin usage. All other systems were otherwise negative. PHYSICAL EXAMINATION: VITAL SIGNS: Temperature 98, breathing 20, pulse of 90, blood pressure 107/73, and satting 98%. GENERAL: In no apparent distress. HEENT: ____. Normocephalic and atraumatic. Moist mucous membranes. NECK: Soft, supple. CHEST: Coarse breath sounds. CARDIOVASCULAR: Regular rate and rhythm. ABDOMEN: Soft, nontender, and nondistended. SKIN: Warm and dry. EXTREMITIES: Revealed no cyanosis. PSYCHOLOGICAL: Alert and oriented x 3. LABORATORY DATA: Labs show white count 15, hemoglobin 13.7, and platelets of 246. INR is 1, total bilirubin 0.9, AST of 457, ALT 203, alkaline phosphatase 75, lipase is 25. Opiates positive, amphetamines positive, methamphetamines positive, benzodiazepine positive, marijuana positive, alcohol level was negative. IMPRESSION: The patient with elevated liver function tests likely from heroin abuse, need to follow. Liver labs can be checked for underlying chronic liver illnesses. Imaging can be done. If results are negative, the patient may eventually need a liver biopsy. PLAN: 1. Avoid any substance abuse. 2. Check liver labs. 3. Follow LFTs. 4. Abdominal ultrasound. 5. If LFTs do not improve, consider liver biopsy. Thank you for allowing me to participate. Please call me if you have any questions. JOB# [id number]
[2018-01-08 04:54] LABS: HEMATOCRIT 36.9 % (41.0-60); HEMOGLOBIN 12.5 gm/dL (12-16); LYMPHOCYTE ABSOLUTE 0.4 Th/cmm (1.5-3.0); MANUAL DIFF REQUIRED? YES; MEAN CELL VOLUME 89.7 fl (80-99); MEAN CORPUSCULAR HEMOGLOBIN 30.4 pg (26.0-30.0); MEAN CORPUSCULAR HGB CONC 33.9 pg (28.0-36.0); MEAN PLATELET VOLUME 8.6 fl; MONOCYTE ABSOLUTE 0.7 Th/cmm (0.3-1.0); NEUTROPHILE ABSOLUTE 14.6 Th/cmm (1.8-8.0); PLATELET COUNT 203 Th/cmm (150-400); RED BLOOD COUNT 4.12 Mil/cmm (4.30-5.70); RED CELL DISTRIBUTION WIDTH 12.9 % (11.5-20.0)
--- NOTE | 2018-01-08 05:06 | General Progress Note ---
Subjective - Review of Systems Service Date: 01/08/18 Subjective: Patient is more awake, alert this morning. Still fatigue and weak. decreased appetite. on Clear liquid diet. Objective - Results Result Diagrams: 01/07/18 04:10 01/07/18 04:10 Recent Labs: Laboratory Last Values WBC 15.0 Th/cmm (4.8-10.8) H 01/07/18 04:10 RBC 4.55 Mil/cmm (4.30-5.70) 01/07/18 04:10 Hgb 13.7 gm/dL (12-16) 01/07/18 04:10 Hct 41.0 % (41.0-60) 01/07/18 04:10 MCV 90.2 fl (80-99) 01/07/18 04:10 MCH 30.1 pg (26.0-30.0) H 01/07/18 04:10 MCHC Differential 33.4 pg (28.0-36.0) 01/07/18 04:10 RDW 13.0 % (11.5-20.0) 01/07/18 04:10 Plt Count 246 Th/cmm (150-400) D 01/07/18 04:10 MPV 8.5 fl 01/07/18 04:10 Band Neutrophils % 18 % (0-10) H 01/07/18 04:10 Neutrophils (Manual) 78 % (40-80) 01/07/18 04:10 Lymphocytes 3 % (20-50) L 01/07/18 04:10 Monocytes 1 % (2-10) L 01/07/18 04:10 Platelet Estimate ADEQUATE (NORMAL) 01/07/18 04:10 Eos Smear Source URINE 01/06/18 13:14 Eos Smear Total Cells NONE SEEN (NONE SEEN) 01/06/18 13:14 PT 10.4 SECONDS (9.5-11.5) 01/07/18 04:10 INR 1.00 (0.5-1.4) 01/07/18 04:10 Specimen Source Arterial 01/07/18 09:42 Sample Site Right Radial 01/07/18 09:42 pH 7.40 (7.35-7.45) 01/07/18 09:42 pCO2 40.0 mmHg (35.0-45.0) 01/07/18 09:42 pO2 68.0 mmHg (80.0-100.0) L 01/07/18 09:42 HCO3 24.8 mEq/L (20.0-26.0) 01/07/18 09:42 Base Excess 0.0 mEq/L (-3.0-3.0) 01/07/18 09:42 O2 Saturation 93.0 % (92.0-100.0) 01/07/18 09:42 Suhail Test YES 01/07/18 09:42 Vent Rate NA 01/07/18 09:42 Inspired O2 21 01/07/18 09:42 Tidal Volume NA 01/07/18 09:42 PEEP NA 01/07/18 09:42 Pressure (ins/psv/peep) NA 01/07/18 09:42 Critical Value E.BAE 01/07/18 09:42 Sodium 132 mEq/L (136-145) L 01/07/18 04:10 Potassium 4.0 mEq/L (3.5-5.1) 01/07/18 04:10 Chloride 103 mEq/L (98-107) 01/07/18 04:10 Carbon Dioxide 20.6 mEq/L (21.0-31.0) L 01/07/18 04:10 Anion Gap 12.4 (7.0-16.0) 01/07/18 04:10 BUN 28 mg/dL (7-25) H 01/07/18 04:10 Creatinine 1.5 mg/dL (0.7-1.3) H 01/07/18 04:10 Est GFR ( Amer) > 60.0 ml/min (>90) 01/07/18 04:10 Est GFR (Non-Af Amer) 55.1 ml/min 01/07/18 04:10 BUN/Creatinine Ratio 18.7 01/07/18 04:10 Glucose 164 mg/dL (70-105) H D 01/07/18 04:10 Whole Bld Lactic Acid 2.19 mmol/L (0.60-1.99) H* 01/07/18 17:17 Calcium 8.4 mg/dL (8.6-10.3) L 01/07/18 04:10 Phosphorus 2.9 mg/dL (2.5-5.0) 01/07/18 04:10 Magnesium 2.4 mg/dL (1.9-2.7) 01/07/18 04:10 Total Bilirubin 0.9 mg/dL (0.3-1.0) 01/07/18 04:10 AST 457 U/L (13-39) H 01/07/18 04:10 ALT 203 U/L (7-52) H 01/07/18 04:10 Alkaline Phosphatase 75 U/L (34-104) 01/07/18 04:10 Ammonia 55 umol/L (16-53) H 01/07/18 04:10 Total Protein 6.1 gm/dL (6.0-8.3) 01/07/18 04:10 Albumin 3.3 gm/dL (4.2-5.5) L 01/07/18 04:10 Globulin 2.8 gm/dL 01/07/18 04:10 Albumin/Globulin Ratio 1.2 (1.0-1.8) 01/07/18 04:10 Amylase 498 U/L (29-103) H 01/07/18 04:10 Lipase 25 U/L (11-82) 01/07/18 04:10 TSH 0.46 uIU/ml (0.34-5.60) 01/06/18 14:30 Urine Source RANDOM 01/06/18 13:14 Urine Color ORANGE 01/06/18 13:14 Urine Clarity HAZY (CLEAR) 01/06/18 13:14 Urine pH 5.0 (4.6 - 8.0) 01/06/18 13:14 Ur Specific [place] >= 1.030 (1.005-1.030) 01/06/18 13:14 Urine Protein 100 mg/dL (NEGATIVE) H 01/06/18 13:14 Urine Glucose (UA) NEGATIVE mg/dL (NEGATIVE) 01/06/18 13:14 Urine Ketones NEGATIVE mg/dL (NEGATIVE) 01/06/18 13:14 Urine Blood LARGE (NEGATIVE) H 01/06/18 13:14 Urine Nitrate NEGATIVE (NEGATIVE) 01/06/18 13:14 Urine Bilirubin NEGATIVE (NEGATIVE) 01/06/18 13:14 Urine Urobilinogen 0.2 E.U./dL (0.2 - 1.0) 01/06/18 13:14 Ur Leukocyte Esterase NEGATIVE (NEGATIVE) 01/06/18 13:14 Urine RBC 5-10 /hpf (0-5) H 01/06/18 13:14 Urine WBC 0-2 /hpf (0-5) 01/06/18 13:14 Ur Epithelial Cells RARE /lpf (FEW) 01/06/18 13:14 Urine Bacteria NONE SEEN /hpf (NONE SEEN) 01/06/18 13:14 Ur Random Sodium 77 mmol/L 01/06/18 13:14 Urine Creatinine 104.0 mg/dl (39.0-259.0) 01/06/18 13:14 CSF Appearance CLEAR 01/06/18 10:08 CSF Color COLORLESS 01/06/18 10:08 CSF WBC 5 /cumm (0-5) 01/06/18 10:08 CSF RBC 11 /cumm (0-5) H 01/06/18 10:08 CSF Glucose 81 mg/dL (40-70) H 01/06/18 10:08 CSF Total Protein 28.4 mg/dL (15-130) 01/06/18 10:08 Salicylates < 25.0 mg/L (30.0-100.0) L 01/07/18 04:10 Urine Opiates Screen POSITIVE (NEGATIVE) H 01/06/18 13:14 Urine Methadone Screen NEGATIVE (NEGATIVE) 01/06/18 13:14 Acetaminophen < 10.0 ug/mL (10.0-30.0) L 01/07/18 04:10 Ur Barbiturates Screen NEGATIVE (NEGATIVE) 01/06/18 13:14 Ur Tricyclics Screen NEGATIVE (NEGATIVE) 01/06/18 13:14 Ur Phencyclidine Scrn NEGATIVE (NEGATIVE) 01/06/18 13:14 Amphetamines Screen POSITIVE (NEGATIVE) H 01/06/18 13:14 U Methamphetamines Scrn POSITIVE (NEGATIVE) H 01/06/18 13:14 U Benzodiazepines Scrn POSITIVE (NEGATIVE) H 01/06/18 13:14 U Cocaine Metab Screen NEGATIVE (NEGATIVE) 01/06/18 13:14 U Cannabinoids Screen POSITIVE (NEGATIVE) H 01/06/18 13:14 Ethyl Alcohol < 10 mg/dL (0-10) 01/06/18 07:55 - Physical Exam Vitals and I&O: Vital Signs Temp 97.8 F 01/08/18 04:00 Pulse 82 01/08/18 04:00 Resp 18 01/08/18 04:00 BP 117/71 01/08/18 04:00 Pulse Ox 96 01/08/18 04:00 Intake & Output 01/07/18 01/07/18 01/08/18 06:59 18:59 06:59 Intake Total 1915 1150 2088.333 Output Total 2050 1500 Balance -135 1150 588.333 Weight (lbs) 71.214 kg 71.214 kg Intake: Intake, IV Amount 715 1150 888.333 D5-0.9%Ns 1,000 ml @ 754 926 0475 888.333 mls/hr IV .Q10H [facility] Rx#: [id number] Piperacillin Sodium/ 50 150 Tazobact 3.375 gm In Sodium Chloride 0.9% 50 ml @ 100 mls/hr IV Q6HR [facility] Rx#:[id number] Oral 1200 1200 Output: Urine 2049 1500 Other: # Bowel Movements 0 Weight Source Bedscale Bedscale Active Medications: Current Medications Albuterol/Ipratropium (Duoneb Neb) 3 ml HHN [id number] [facility] Stop: 03/07/18 14:59 Last Admin: 01/07/18 18:59 Dose: 3 ml Budesonide (Pulmicort) 0.5 mg HHN BIDRT [facility] Stop: 03/07/18 18:59 Last Admin: 01/07/18 18:59 Dose: 0.5 mg Piperacillin Sod/Tazobactam (Sod 3.375 gm/ Sodium Chloride) 50 mls @ 100 mls/ hr IV Q6HR [facility] Stop: 03/07/18 11:59 Last Admin: 01/07/18 23:46 Dose: 100 mls/hr Dextrose/Sodium Chloride (D5-0.9%Ns) 1,000 mls @ 100 mls/hr IV .Q10H [facility] Stop: 03/07/18 13:59 Last Admin: 01/07/18 23:46 Dose: 100 mls/hr Lorazepam (Ativan) 2 mg IVP Q4HR PRN; Protocol PRN Reason: Agitation Stop: 03/07/18 14:54 Methylprednisolone Sodium Succinate (Solu-Medrol) 40 mg IV Q6HR [facility] Stop: 01/08/18 18:01 Last Admin: 05/04/18 23:45 Dose: 40 mg Miscellaneous (Zosyn Iv Per Pharmacy) 1 ea MC PRN PRN PRN Reason: PROTOCOL Stop: 03/07/18 10:37 Pantoprazole Sodium (Protonix) 40 mg IVP QDAC SUSHILA Stop: 03/08/18 08:59 Last Admin: 01/07/18 09:31 Dose: 40 mg General: Alert, Oriented x3, No acute distress HEENT: Atraumatic, PERRLA, EOMI Neck: Supple, no JVD, no Thyromegaly Cardiovascular: Regular rate, Normal S1, Normal S2 Lungs: Clear to auscultation Abdomen: Bowel sounds, Soft Extremities: no Clubbing, no Cyanosis, no Edema Neurological: Sensation intact Psych/Mental Status: Mood NL - Procedures Procedures: Procedures Procedure Code Date DRAINAGE OF SPINAL CANAL, PERCUTANEOUS APPROACH, DIAGNOSTIC [id number] 01/06/18 SPINAL FLUID TAP DIAGNOSTIC 29197 01/06/18 Assessment/Plan - Assessment Assessment: ALOC secondary to multiple substance abuse Encephalopathy improving +UDS PNA Leukocystosis w/ bandemia Acute Renal insufficiency improving UTI Hyperkalemia elevated LFTs hepatitis - Plan Plan: Admit to ICU IV fluid hydration pulmonary consult nephrology consult neurology consult repeat CBC,CMP tomorrow CXR U/S abd acute hepatitis panel amylase,lipase, PT/INR GI consult
[2018-01-08 05:11] LABS: WHITE BLOOD COUNT 15.7 Th/cmm (4.8-10.8)
[2018-01-08 05:32] LABS: TOTAL CELLS COUNTED 100
[2018-01-08 05:34] LABS: BAND NEUTROPHILE 10 % (0-10); BASOPHIL 0 % (0-3); EOSINOPHIL 0 % (0-5); LYMPHOCYTE 4 % (20-50); MONOCYTE 5 % (2-10); NEUTROPHILS 81 % (40-80)
[2018-01-08 05:35] LABS: PLATELET ESTIMATE ADEQUATE (NORMAL); PLATELET MORPHOLOGY NORMAL (NORMAL)
[2018-01-08 05:44] LABS: ALB/GLOB RATIO 1.2 (1.0-1.8); ALBUMIN 2.9 gm/dL (4.2-5.5); ALKALINE PHOSPHATASE 66 U/L (34-104); BILIRUBIN,TOTAL 0.5 mg/dL (0.3-1.0); BUN - UREA NITROGEN 20 mg/dL (7-25); CALCIUM SERUM 8.3 mg/dL (8.6-10.3); CHLORIDE 108 mEq/L (98-107); CREATININE - SERUM 1.1 mg/dL (0.7-1.3); GFR AFRICAN-AMERICAN > 60.0 ml/min (>90); GFR NON AFRICAN-AMERICAN > 60.0 ml/min; GLUCOSE 168 mg/dL (70-105); SGOT 359 U/L (13-39); SGPT/ALT 191 U/L (7-52); SODIUM SERUM 137 mEq/L (136-145); TOTAL PROTEIN,SERUM 5.4 gm/dL (6.0-8.3)
[2018-01-08] MEDS: methylPREDNISolone SS 40 mg Vial IV SCH ×3 (06:36→17:44)
[2018-01-08] MEDS: Budesonide 0.5 Mg/2 mL Ud HHN SCH ×2 (08:05→19:11)
[2018-01-08] MEDS: Albuterol/Ipratropium Neb 3 ML AERS HHN SCH ×4 (08:05→19:11)
--- NOTE | 2018-01-08 08:42 | Diagnostic Imaging Report ---
Abdominal ultrasound HISTORY: Abnormal liver function tests. Exam is limited due to bowel gas. Somewhat limited views of the liver provided. No focal lesions. Exam the gallbladder demonstrates low-level intraluminal echoes suggesting "sludge". No discrete calculi are seen. No biliary dilatation. Pancreas cannot be seen due to bowel gas. No focal renal lesions. No hydronephrosis. No other retroperitoneal or intra-abdominal abnormalities. IMPRESSION: 1. Limited exam due to considerable bowel gas 2. No obvious abnormalities
--- NOTE | 2018-01-08 08:46 | Diagnostic Imaging Report ---
Chest x-ray 2 views HISTORY:Shortness of breath The overall heart size is normal. No focal pulmonary processes. No hilar or mediastinal abnormalities. Mild degenerative changes seen in the spine along with slight anterior wedging involving several mid and lower thoracic vertebrae. IMPRESSION: No acute abnormalities.
[2018-01-08 14:15] LABS: HEP A AB IGM Negative (Negative); HEP B CORE IGM Negative (Negative); HEP B SURFACE AG QL Negative (Negative); HEP C ANTIBODY >11.0 s/co ratio (0.0-0.9)
--- NOTE | 2018-01-08 18:27 | GI Progress Note ---
Subjective - Review of Systems Service Date: 01/08/18 Events since last encounter: No events Subjective: No GI complaint Objective - Results Result Diagrams: 01/08/18 04:14 01/08/18 04:14 Recent Labs: Laboratory Last Values WBC 15.7 Th/cmm (4.8-10.8) H 01/08/18 04:14 RBC 4.12 Mil/cmm (4.30-5.70) L 01/08/18 04:14 Hgb 12.5 gm/dL (12-16) 01/08/18 04:14 Hct 36.9 % (41.0-60) L 01/08/18 04:14 MCV 89.7 fl (80-99) 01/08/18 04:14 MCH 30.4 pg (26.0-30.0) H 01/08/18 04:14 MCHC Differential 33.9 pg (28.0-36.0) 01/08/18 04:14 RDW 12.9 % (11.5-20.0) 01/08/18 04:14 Plt Count 203 Th/cmm (150-400) 01/08/18 04:14 MPV 8.6 fl 01/08/18 04:14 Band Neutrophils % 10 % (0-10) 01/08/18 04:14 Neutrophils (Manual) 81 % (40-80) H 01/08/18 04:14 Lymphocytes 4 % (20-50) L 01/08/18 04:14 Monocytes 5 % (2-10) 01/08/18 04:14 Eosinophils 0 % (0-5) 01/08/18 04:14 Basophils 0 % (0-3) 01/08/18 04:14 Platelet Estimate ADEQUATE (NORMAL) 01/08/18 04:14 Platelet Morphology NORMAL (NORMAL) 01/08/18 04:14 RBC Morph Micro Appear NORMAL (NORMAL) 01/08/18 04:14 Eos Smear Source URINE 01/06/18 13:14 Eos Smear Total Cells NONE SEEN (NONE SEEN) 01/06/18 13:14 PT 10.4 SECONDS (9.5-11.5) 01/07/18 04:10 INR 1.00 (0.5-1.4) 01/07/18 04:10 Specimen Source Arterial 01/07/18 09:42 Sample Site Right Radial 01/07/18 09:42 pH 7.40 (7.35-7.45) 01/07/18 09:42 pCO2 40.0 mmHg (35.0-45.0) 01/07/18 09:42 pO2 68.0 mmHg (80.0-100.0) L 01/07/18 09:42 HCO3 24.8 mEq/L (20.0-26.0) 01/07/18 09:42 Base Excess 0.0 mEq/L (-3.0-3.0) 01/07/18 09:42 O2 Saturation 93.0 % (92.0-100.0) 01/07/18 09:42 Suhail Test YES 01/07/18 09:42 Vent Rate NA 01/07/18 09:42 Inspired O2 21 01/07/18 09:42 Tidal Volume NA 01/07/18 09:42 PEEP NA 01/07/18 09:42 Pressure (ins/psv/peep) NA 01/07/18 09:42 Critical Value E.BAE 01/07/18 09:42 Sodium 137 mEq/L (136-145) 01/08/18 04:14 Potassium 4.0 mEq/L (3.5-5.1) 01/08/18 04:14 Chloride 108 mEq/L (98-107) H 01/08/18 04:14 Carbon Dioxide 23.0 mEq/L (21.0-31.0) 01/08/18 04:14 Anion Gap 10.0 (7.0-16.0) 01/08/18 04:14 BUN 20 mg/dL (7-25) 01/08/18 04:14 Creatinine 1.1 mg/dL (0.7-1.3) 01/08/18 04:14 Est GFR ( Amer) > 60.0 ml/min (>90) 01/08/18 04:14 Est GFR (Non-Af Amer) > 60.0 ml/min 01/08/18 04:14 BUN/Creatinine Ratio 18.2 01/08/18 04:14 Glucose 168 mg/dL (70-105) H 01/08/18 04:14 Whole Bld Lactic Acid 2.19 mmol/L (0.60-1.99) H* 01/07/18 17:17 Calcium 8.3 mg/dL (8.6-10.3) L 01/08/18 04:14 Phosphorus 2.9 mg/dL (2.5-5.0) 01/07/18 04:10 Magnesium 2.4 mg/dL (1.9-2.7) 01/07/18 04:10 Total Bilirubin 0.5 mg/dL (0.3-1.0) 01/08/18 04:14 AST 359 U/L (13-39) H 01/08/18 04:14 ALT 191 U/L (7-52) H 01/08/18 04:14 Alkaline Phosphatase 66 U/L (34-104) 01/08/18 04:14 Ammonia 55 umol/L (16-53) H 01/07/18 04:10 Total Protein 5.4 gm/dL (6.0-8.3) L 01/08/18 04:14 Albumin 2.9 gm/dL (4.2-5.5) L 01/08/18 04:14 Globulin 2.5 gm/dL 01/08/18 04:14 Albumin/Globulin Ratio 1.2 (1.0-1.8) 01/08/18 04:14 Amylase 498 U/L (29-103) H 01/07/18 04:10 Lipase 25 U/L (11-82) 01/07/18 04:10 TSH 0.46 uIU/ml (0.34-5.60) 01/06/18 14:30 Urine Source RANDOM 01/06/18 13:14 Urine Color ORANGE 01/06/18 13:14 Urine Clarity HAZY (CLEAR) 01/06/18 13:14 Urine pH 5.0 (4.6 - 8.0) 01/06/18 13:14 Ur Specific [place] >= 1.030 (1.005-1.030) 01/06/18 13:14 Urine Protein 100 mg/dL (NEGATIVE) H 01/06/18 13:14 Urine Glucose (UA) NEGATIVE mg/dL (NEGATIVE) 01/06/18 13:14 Urine Ketones NEGATIVE mg/dL (NEGATIVE) 01/06/18 13:14 Urine Blood LARGE (NEGATIVE) H 01/06/18 13:14 Urine Nitrate NEGATIVE (NEGATIVE) 01/06/18 13:14 Urine Bilirubin NEGATIVE (NEGATIVE) 01/06/18 13:14 Urine Urobilinogen 0.2 E.U./dL (0.2 - 1.0) 01/06/18 13:14 Ur Leukocyte Esterase NEGATIVE (NEGATIVE) 01/06/18 13:14 Urine RBC 5-10 /hpf (0-5) H 01/06/18 13:14 Urine WBC 0-2 /hpf (0-5) 01/06/18 13:14 Ur Epithelial Cells RARE /lpf (FEW) 01/06/18 13:14 Urine Bacteria NONE SEEN /hpf (NONE SEEN) 01/06/18 13:14 Ur Random Sodium 77 mmol/L 01/06/18 13:14 Urine Creatinine 104.0 mg/dl (39.0-259.0) 01/06/18 13:14 CSF Appearance CLEAR 01/06/18 10:08 CSF Color COLORLESS 01/06/18 10:08 CSF WBC 5 /cumm (0-5) 01/06/18 10:08 CSF RBC 11 /cumm (0-5) H 01/06/18 10:08 CSF Glucose 81 mg/dL (40-70) H 01/06/18 10:08 CSF Total Protein 28.4 mg/dL (15-130) 01/06/18 10:08 Salicylates < 25.0 mg/L (30.0-100.0) L 01/07/18 04:10 Urine Opiates Screen POSITIVE (NEGATIVE) H 01/06/18 13:14 Urine Methadone Screen NEGATIVE (NEGATIVE) 01/06/18 13:14 Acetaminophen < 10.0 ug/mL (10.0-30.0) L 01/07/18 04:10 Ur Barbiturates Screen NEGATIVE (NEGATIVE) 01/06/18 13:14 Ur Tricyclics Screen NEGATIVE (NEGATIVE) 01/06/18 13:14 Ur Phencyclidine Scrn NEGATIVE (NEGATIVE) 01/06/18 13:14 Amphetamines Screen POSITIVE (NEGATIVE) H 01/06/18 13:14 U Methamphetamines Scrn POSITIVE (NEGATIVE) H 01/06/18 13:14 U Benzodiazepines Scrn POSITIVE (NEGATIVE) H 01/06/18 13:14 U Cocaine Metab Screen NEGATIVE (NEGATIVE) 01/06/18 13:14 U Cannabinoids Screen POSITIVE (NEGATIVE) H 01/06/18 13:14 Ethyl Alcohol < 10 mg/dL (0-10) 01/06/18 07:55 Hepatitis A IgM Ab Negative (Negative) 01/07/18 04:10 Hep Bs Antigen Negative (Negative) 01/07/18 04:10 Hep B Core IgM Ab Negative (Negative) 01/07/18 04:10 Hepatitis C Antibody >11.0 s/co ratio (0.0-0.9) H 01/07/18 04:10 - Physical Exam Vitals and I&O: Vital Signs Temp 98.5 F 01/08/18 16:00 Pulse 90 01/08/18 16:00 Resp 18 01/08/18 16:00 BP 119/60 01/08/18 16:00 Pulse Ox 95 01/08/18 16:00 Intake & Output 01/07/18 01/08/18 01/08/18 18:59 06:59 18:59 Intake Total 1150 4825.000 100 Output Total 3000 600 Balance 1150 1825.000 -500 Weight (lbs) 71.577 kg 71.577 kg Intake: Intake, IV Amount 1150 1625.000 100 D5-0.9%Ns 1,000 ml @ 100 1000 1575.000 mls/hr IV .Q10H [facility] Rx#: [id number] Piperacillin Sodium/ 150 50 100 Tazobact 3.375 gm In Sodium Chloride 0.9% 50 ml @ 100 mls/hr IV Q6HR [facility] Rx#:[id number] Oral 3200 Output: Urine 3000 600 Other: # Voids 3 Weight Source Bedscale Bedscale Active Medications: Current Medications Albuterol/Ipratropium (Duoneb Neb) 3 ml HHN [id number] [facility] Stop: 03/07/18 14:59 Last Admin: 01/08/18 15:47 Dose: 3 ml Budesonide (Pulmicort) 0.5 mg HHN BIDRT [facility] Stop: 03/07/18 18:59 Last Admin: 01/08/18 08:05 Dose: 0.5 mg Piperacillin Sod/Tazobactam (Sod 3.375 gm/ Sodium Chloride) 50 mls @ 100 mls/ hr IV Q6HR [facility] Stop: 03/07/18 11:59 Last Admin: 01/08/18 17:45 Dose: 100 mls/hr Dextrose/Sodium Chloride (D5-0.9%Ns) 1,000 mls @ 100 mls/hr IV .Q10H [facility] Stop: 03/07/18 13:59 Last Infusion: 01/08/18 06:38 Dose: 100 mls/hr Lorazepam (Ativan) 2 mg IVP Q4HR PRN; Protocol PRN Reason: Agitation Stop: 03/07/18 14:54 Miscellaneous (Zosyn Iv Per Pharmacy) 1 ea MC PRN PRN PRN Reason: PROTOCOL Stop: 03/07/18 10:37 Pantoprazole Sodium (Protonix) 40 mg IVP QDAC [facility] Stop: 03/08/18 08:59 Last Admin: 01/08/18 08:48 Dose: 40 mg General: Alert, Oriented x3, No acute distress HEENT: Atraumatic, PERRLA, EOMI Neck: Supple, no JVD, no Thyromegaly Cardiovascular: Regular rate, Normal S1, Normal S2 Lungs: Clear to auscultation Abdomen: Bowel sounds, Soft Extremities: no Clubbing, no Cyanosis, no Edema Neurological: Sensation intact Psych/Mental Status: Mood NL - Procedures Procedures: Procedures Procedure Code Date DRAINAGE OF SPINAL CANAL, PERCUTANEOUS APPROACH, DIAGNOSTIC [id number] 01/06/18 SPINAL FLUID TAP DIAGNOSTIC 88406 01/06/18 Assessment/Plan - Assessment Assessment: 1.Abnormal LFTs 2. Hep C Ab positive - Plan Plan: 1.Abnormal LFTs Most likely due to substance abuse. Improving gradually 2. Hep C Ab positive F/U as OPT
[2018-01-08] MEDS: D5-0.9%NS 1,000 ML IV SCH (22:50)
--- NOTE | 2018-01-09 00:30 | Progress Notes ---
DATE: 01/08/2018 PROBLEM LIST: 1. Acute asthmatic bronchitis. 2. Questionable pneumonitis, resolved. 3. Opioid/illicit drug abuse. SYMPTOMS: Nil, feeling okay. No coughing, no wheezing, no much shortness of breath, etc. PHYSICAL EXAMINATION: VITAL SIGNS: Recorded temperature is 98.2, saturation 100% on room air. NECK: Veins not visualized. CHEST: Shows clear with diminished air entry. IMAGING: A portable chest x-ray single view shows borderline cardiac enlargement. ASSESSMENT: The patient clinically appears to be stable, improving. PLANS AND SUGGESTIONS: I have advised against illicit drug use including tobacco dependency and okay pulmonary garcia to be discharged if other issues are stable and go from there. JOB# [id number]
[2018-01-09 05:17] LABS: HEMATOCRIT 36.2 % (41.0-60); HEMOGLOBIN 12.2 gm/dL (12-16); MEAN CELL VOLUME 89.3 fl (80-99); MEAN CORPUSCULAR HGB CONC 33.6 pg (28.0-36.0); MEAN PLATELET VOLUME 9.1 fl; PLATELET COUNT 200 Th/cmm (150-400); RED BLOOD COUNT 4.06 Mil/cmm (4.30-5.70); RED CELL DISTRIBUTION WIDTH 12.9 % (11.5-20.0)
[2018-01-09 05:22] LABS: MANUAL DIFF REQUIRED? YES; WHITE BLOOD COUNT 16.3 Th/cmm (4.8-10.8)
[2018-01-09 05:29] LABS: ALB/GLOB RATIO 1.2 (1.0-1.8); ALBUMIN 2.8 gm/dL (4.2-5.5); ALKALINE PHOSPHATASE 68 U/L (34-104); BILIRUBIN,TOTAL 0.5 mg/dL (0.3-1.0); BUN - UREA NITROGEN 18 mg/dL (7-25); CALCIUM SERUM 8.8 mg/dL (8.6-10.3); CARBON DIOXIDE 26.2 mEq/L (21.0-31.0); CHLORIDE 106 mEq/L (98-107); CREATININE - SERUM 0.9 mg/dL (0.7-1.3); GFR AFRICAN-AMERICAN > 60.0 ml/min (>90); GFR NON AFRICAN-AMERICAN > 60.0 ml/min; GLUCOSE 141 mg/dL (70-105); POTASSIUM SERUM 4.2 mEq/L (3.5-5.1); SGOT 359 U/L (13-39); SGPT/ALT 214 U/L (7-52); SODIUM SERUM 136 mEq/L (136-145); TOTAL PROTEIN,SERUM 5.2 gm/dL (6.0-8.3)
[2018-01-09 06:24] LABS: BAND NEUTROPHILE 2 % (0-10); BASOPHIL 0 % (0-3); EOSINOPHIL 0 % (0-5); LYMPHOCYTE 4 % (20-50); MONOCYTE 3 % (2-10); NEUTROPHILS 91 % (40-80); TOTAL CELLS COUNTED 100
[2018-01-09] MEDS: Albuterol/Ipratropium Neb 3 ML AERS HHN SCH ×4 (07:48→19:13)
[2018-01-09] MEDS: Budesonide 0.5 Mg/2 mL Ud HHN SCH ×2 (07:48→19:13)
--- NOTE | 2018-01-09 07:55 | Diagnostic Imaging Report ---
Left upper extremity Doppler venous ultrasound exam HISTORY: Swelling Sonographic sector images were obtained through the venous system of the left arm. Associated Doppler data was obtained. The exam demonstrates patency of the left internal jugular, subclavian, axillary, brachial, basilic, and cephalic veins. No thrombus. Normal compressibility and augmentation responses. IMPRESSION: No evidence of thrombophlebitis.
--- NOTE | 2018-01-09 09:49 | General Progress Note ---
Subjective - Review of Systems Service Date: 01/09/18 Subjective: Patient is more awake, alert today. No nausea no vomiting. Patient aware of his Hep C status. States that he has a physician who he follows. Objective - Results Result Diagrams: 01/09/18 04:15 01/09/18 04:15 Recent Labs: Laboratory Last Values WBC 16.3 Th/cmm (4.8-10.8) H 01/09/18 04:15 RBC 4.06 Mil/cmm (4.30-5.70) L 01/09/18 04:15 Hgb 12.2 gm/dL (12-16) 01/09/18 04:15 Hct 36.2 % (41.0-60) L 01/09/18 04:15 MCV 89.3 fl (80-99) 01/09/18 04:15 MCH 30.0 pg (26.0-30.0) 01/09/18 04:15 MCHC Differential 33.6 pg (28.0-36.0) 01/09/18 04:15 RDW 12.9 % (11.5-20.0) 01/09/18 04:15 Plt Count 200 Th/cmm (150-400) 01/09/18 04:15 MPV 9.1 fl 01/09/18 04:15 Band Neutrophils % 2 % (0-10) 01/09/18 04:15 Neutrophils (Manual) 91 % (40-80) H 01/09/18 04:15 Lymphocytes 4 % (20-50) L 01/09/18 04:15 Monocytes 3 % (2-10) 01/09/18 04:15 Eosinophils 0 % (0-5) 01/09/18 04:15 Basophils 0 % (0-3) 01/09/18 04:15 Platelet Estimate ADEQUATE (NORMAL) 01/08/18 04:14 Platelet Morphology NORMAL (NORMAL) 01/08/18 04:14 RBC Morph Micro Appear NORMAL (NORMAL) 01/08/18 04:14 Eos Smear Source URINE 01/06/18 13:14 Eos Smear Total Cells NONE SEEN (NONE SEEN) 01/06/18 13:14 PT 10.4 SECONDS (9.5-11.5) 01/07/18 04:10 INR 1.00 (0.5-1.4) 01/07/18 04:10 Specimen Source Arterial 01/07/18 09:42 Sample Site Right Radial 01/07/18 09:42 pH 7.40 (7.35-7.45) 01/07/18 09:42 pCO2 40.0 mmHg (35.0-45.0) 01/07/18 09:42 pO2 68.0 mmHg (80.0-100.0) L 01/07/18 09:42 HCO3 24.8 mEq/L (20.0-26.0) 01/07/18 09:42 Base Excess 0.0 mEq/L (-3.0-3.0) 01/07/18 09:42 O2 Saturation 93.0 % (92.0-100.0) 01/07/18 09:42 Suhail Test YES 01/07/18 09:42 Vent Rate NA 01/07/18 09:42 Inspired O2 21 01/07/18 09:42 Tidal Volume NA 01/07/18 09:42 PEEP NA 01/07/18 09:42 Pressure (ins/psv/peep) NA 01/07/18 09:42 Critical Value E.BAE 01/07/18 09:42 Sodium 136 mEq/L (136-145) 01/09/18 04:15 Potassium 4.2 mEq/L (3.5-5.1) 01/09/18 04:15 Chloride 106 mEq/L (98-107) 01/09/18 04:15 Carbon Dioxide 26.2 mEq/L (21.0-31.0) 01/09/18 04:15 Anion Gap 8.0 (7.0-16.0) 01/09/18 04:15 BUN 18 mg/dL (7-25) 01/09/18 04:15 Creatinine 0.9 mg/dL (0.7-1.3) 01/09/18 04:15 Est GFR ( Amer) > 60.0 ml/min (>90) 01/09/18 04:15 Est GFR (Non-Af Amer) > 60.0 ml/min 01/09/18 04:15 BUN/Creatinine Ratio 20.0 01/09/18 04:15 Glucose 141 mg/dL (70-105) H 01/09/18 04:15 Whole Bld Lactic Acid 2.19 mmol/L (0.60-1.99) H* 01/07/18 17:17 Calcium 8.8 mg/dL (8.6-10.3) 01/09/18 04:15 Phosphorus 2.9 mg/dL (2.5-5.0) 01/07/18 04:10 Magnesium 2.4 mg/dL (1.9-2.7) 01/07/18 04:10 Total Bilirubin 0.5 mg/dL (0.3-1.0) 01/09/18 04:15 AST 359 U/L (13-39) H 01/09/18 04:15 ALT 214 U/L (7-52) H 01/09/18 04:15 Alkaline Phosphatase 68 U/L (34-104) 01/09/18 04:15 Ammonia 55 umol/L (16-53) H 01/07/18 04:10 Total Protein 5.2 gm/dL (6.0-8.3) L 01/09/18 04:15 Albumin 2.8 gm/dL (4.2-5.5) L 01/09/18 04:15 Globulin 2.4 gm/dL 01/09/18 04:15 Albumin/Globulin Ratio 1.2 (1.0-1.8) 01/09/18 04:15 Amylase 498 U/L (29-103) H 01/07/18 04:10 Lipase 25 U/L (11-82) 01/07/18 04:10 TSH 0.46 uIU/ml (0.34-5.60) 01/06/18 14:30 Urine Source RANDOM 01/06/18 13:14 Urine Color ORANGE 01/06/18 13:14 Urine Clarity HAZY (CLEAR) 01/06/18 13:14 Urine pH 5.0 (4.6 - 8.0) 01/06/18 13:14 Ur Specific [place] >= 1.030 (1.005-1.030) 01/06/18 13:14 Urine Protein 100 mg/dL (NEGATIVE) H 01/06/18 13:14 Urine Glucose (UA) NEGATIVE mg/dL (NEGATIVE) 01/06/18 13:14 Urine Ketones NEGATIVE mg/dL (NEGATIVE) 01/06/18 13:14 Urine Blood LARGE (NEGATIVE) H 01/06/18 13:14 Urine Nitrate NEGATIVE (NEGATIVE) 01/06/18 13:14 Urine Bilirubin NEGATIVE (NEGATIVE) 01/06/18 13:14 Urine Urobilinogen 0.2 E.U./dL (0.2 - 1.0) 01/06/18 13:14 Ur Leukocyte Esterase NEGATIVE (NEGATIVE) 01/06/18 13:14 Urine RBC 5-10 /hpf (0-5) H 01/06/18 13:14 Urine WBC 0-2 /hpf (0-5) 01/06/18 13:14 Ur Epithelial Cells RARE /lpf (FEW) 01/06/18 13:14 Urine Bacteria NONE SEEN /hpf (NONE SEEN) 01/06/18 13:14 Ur Random Sodium 77 mmol/L 01/06/18 13:14 Urine Creatinine 104.0 mg/dl (39.0-259.0) 01/06/18 13:14 CSF Appearance CLEAR 01/06/18 10:08 CSF Color COLORLESS 01/06/18 10:08 CSF WBC 5 /cumm (0-5) 01/06/18 10:08 CSF RBC 11 /cumm (0-5) H 01/06/18 10:08 CSF Glucose 81 mg/dL (40-70) H 01/06/18 10:08 CSF Total Protein 28.4 mg/dL (15-130) 01/06/18 10:08 Salicylates < 25.0 mg/L (30.0-100.0) L 01/07/18 04:10 Urine Opiates Screen POSITIVE (NEGATIVE) H 01/06/18 13:14 Urine Methadone Screen NEGATIVE (NEGATIVE) 01/06/18 13:14 Acetaminophen < 10.0 ug/mL (10.0-30.0) L 01/07/18 04:10 Ur Barbiturates Screen NEGATIVE (NEGATIVE) 01/06/18 13:14 Ur Tricyclics Screen NEGATIVE (NEGATIVE) 01/06/18 13:14 Ur Phencyclidine Scrn NEGATIVE (NEGATIVE) 01/06/18 13:14 Amphetamines Screen POSITIVE (NEGATIVE) H 01/06/18 13:14 U Methamphetamines Scrn POSITIVE (NEGATIVE) H 01/06/18 13:14 U Benzodiazepines Scrn POSITIVE (NEGATIVE) H 01/06/18 13:14 U Cocaine Metab Screen NEGATIVE (NEGATIVE) 01/06/18 13:14 U Cannabinoids Screen POSITIVE (NEGATIVE) H 01/06/18 13:14 Ethyl Alcohol < 10 mg/dL (0-10) 01/06/18 07:55 Hepatitis A IgM Ab Negative (Negative) 01/07/18 04:10 Hep Bs Antigen Negative (Negative) 01/07/18 04:10 Hep B Core IgM Ab Negative (Negative) 01/07/18 04:10 Hepatitis C Antibody >11.0 s/co ratio (0.0-0.9) H 01/07/18 04:10 - Physical Exam Vitals and I&O: Vital Signs Temp 98.2 F 01/09/18 08:00 Pulse 72 01/09/18 08:00 Resp 18 01/09/18 08:24 BP 129/82 01/09/18 08:00 Pulse Ox 98 01/09/18 08:00 Intake & Output 01/08/18 01/09/18 01/09/18 18:59 06:59 18:59 Intake Total 1490 2751.666 Output Total 1601 2000 Balance -111 751.666 Weight (lbs) 71.577 kg 69.672 kg 69.4 kg Intake: Intake, IV Amount 150 1151.666 D5-0.9%Ns 1,000 ml @ 100 1051.666 mls/hr IV .Q10H [facility] Rx#: [id number] Piperacillin Sodium/ 150 100 Tazobact 3.375 gm In Sodium Chloride 0.9% 50 ml @ 100 mls/hr IV Q6HR [facility] Rx#:[id number] Oral 1240 1600 Other 100 Output: Urine 1600 2000 Stool 1 Other: # Voids 3 # Bowel Movements 1 Stool Characteristics Formed Weight Source Bedscale Bedscale Bedscale Active Medications: Current Medications Albuterol/Ipratropium (Duoneb Neb) 3 ml HHN [id number] [facility] Stop: 03/07/18 14:59 Last Admin: 01/09/18 07:48 Dose: 3 ml Budesonide (Pulmicort) 0.5 mg HHN BIDRT [facility] Stop: 03/07/18 18:59 Last Admin: 01/09/18 07:48 Dose: 0.5 mg Piperacillin Sod/Tazobactam (Sod 3.375 gm/ Sodium Chloride) 50 mls @ 100 mls/ hr IV Q6HR [facility] Stop: 03/07/18 11:59 Last Infusion: 01/09/18 06:41 Dose: Infused Dextrose/Sodium Chloride (D5-0.9%Ns) 1,000 mls @ 100 mls/hr IV .Q10H [facility] Stop: 03/07/18 13:59 Last Infusion: 01/09/18 06:13 Dose: 100 mls/hr Lorazepam (Ativan) 2 mg IVP Q4HR PRN; Protocol PRN Reason: Agitation Stop: 03/07/18 14:54 Miscellaneous (Zosyn Iv Per Pharmacy) 1 ea [facility] PRN PRN PRN Reason: PROTOCOL Stop: 03/07/18 10:37 Pantoprazole Sodium (Protonix) 40 mg IVP QDAC [facility] Stop: 03/08/18 08:59 Last Admin: 01/09/18 06:41 Dose: 40 mg General: Alert, Oriented x3, No acute distress HEENT: Atraumatic, PERRLA, EOMI Neck: Supple, no JVD, no Thyromegaly Cardiovascular: Regular rate, Normal S1, Normal S2 Lungs: Clear to auscultation Abdomen: Bowel sounds, Soft Extremities: no Clubbing, no Cyanosis, no Edema Neurological: Sensation intact Psych/Mental Status: Mood NL - Procedures Procedures: Procedures Procedure Code Date DRAINAGE OF SPINAL CANAL, PERCUTANEOUS APPROACH, DIAGNOSTIC [id number] 01/06/18 SPINAL FLUID TAP DIAGNOSTIC 07032 01/06/18 Assessment/Plan - Assessment Assessment: ALOC secondary to multiple substance abuse improved. Encephalopathy improving +UDS PNA Leukocystosis w/ bandemia Acute Renal insufficiency improving UTI Hyperkalemia elevated LFTs hepatitis - Plan Plan: Will transfer patient to med/surg/telemetry bed if possible. IV fluid hydration pulmonary consult nephrology consult neurology consult repeat CBC,CMP tomorrow CXR U/S abd acute hepatitis panel amylase,lipase, PT/INR GI consult
--- NOTE | 2018-01-09 11:01 | GI Progress Note ---
Subjective - Review of Systems Service Date: 01/09/18 Events since last encounter: No events Subjective: No GI complaint Objective - Results Result Diagrams: 01/09/18 04:15 01/09/18 04:15 Recent Labs: Laboratory Last Values WBC 16.3 Th/cmm (4.8-10.8) H 01/09/18 04:15 RBC 4.06 Mil/cmm (4.30-5.70) L 01/09/18 04:15 Hgb 12.2 gm/dL (12-16) 01/09/18 04:15 Hct 36.2 % (41.0-60) L 01/09/18 04:15 MCV 89.3 fl (80-99) 01/09/18 04:15 MCH 30.0 pg (26.0-30.0) 01/09/18 04:15 MCHC Differential 33.6 pg (28.0-36.0) 01/09/18 04:15 RDW 12.9 % (11.5-20.0) 01/09/18 04:15 Plt Count 200 Th/cmm (150-400) 01/09/18 04:15 MPV 9.1 fl 01/09/18 04:15 Band Neutrophils % 2 % (0-10) 01/09/18 04:15 Neutrophils (Manual) 91 % (40-80) H 01/09/18 04:15 Lymphocytes 4 % (20-50) L 01/09/18 04:15 Monocytes 3 % (2-10) 01/09/18 04:15 Eosinophils 0 % (0-5) 01/09/18 04:15 Basophils 0 % (0-3) 01/09/18 04:15 Platelet Estimate ADEQUATE (NORMAL) 01/08/18 04:14 Platelet Morphology NORMAL (NORMAL) 01/08/18 04:14 RBC Morph Micro Appear NORMAL (NORMAL) 01/08/18 04:14 Eos Smear Source URINE 01/06/18 13:14 Eos Smear Total Cells NONE SEEN (NONE SEEN) 01/06/18 13:14 PT 10.4 SECONDS (9.5-11.5) 01/07/18 04:10 INR 1.00 (0.5-1.4) 01/07/18 04:10 Specimen Source Arterial 01/07/18 09:42 Sample Site Right Radial 01/07/18 09:42 pH 7.40 (7.35-7.45) 01/07/18 09:42 pCO2 40.0 mmHg (35.0-45.0) 01/07/18 09:42 pO2 68.0 mmHg (80.0-100.0) L 01/07/18 09:42 HCO3 24.8 mEq/L (20.0-26.0) 01/07/18 09:42 Base Excess 0.0 mEq/L (-3.0-3.0) 01/07/18 09:42 O2 Saturation 93.0 % (92.0-100.0) 01/07/18 09:42 Suhail Test YES 01/07/18 09:42 Vent Rate NA 01/07/18 09:42 Inspired O2 21 01/07/18 09:42 Tidal Volume NA 01/07/18 09:42 PEEP NA 01/07/18 09:42 Pressure (ins/psv/peep) NA 01/07/18 09:42 Critical Value E.BAE 01/07/18 09:42 Sodium 136 mEq/L (136-145) 01/09/18 04:15 Potassium 4.2 mEq/L (3.5-5.1) 01/09/18 04:15 Chloride 106 mEq/L (98-107) 01/09/18 04:15 Carbon Dioxide 26.2 mEq/L (21.0-31.0) 01/09/18 04:15 Anion Gap 8.0 (7.0-16.0) 01/09/18 04:15 BUN 18 mg/dL (7-25) 01/09/18 04:15 Creatinine 0.9 mg/dL (0.7-1.3) 01/09/18 04:15 Est GFR ( Amer) > 60.0 ml/min (>90) 01/09/18 04:15 Est GFR (Non-Af Amer) > 60.0 ml/min 01/09/18 04:15 BUN/Creatinine Ratio 20.0 01/09/18 04:15 Glucose 141 mg/dL (70-105) H 01/09/18 04:15 Whole Bld Lactic Acid 2.19 mmol/L (0.60-1.99) H* 01/07/18 17:17 Calcium 8.8 mg/dL (8.6-10.3) 01/09/18 04:15 Phosphorus 2.9 mg/dL (2.5-5.0) 01/07/18 04:10 Magnesium 2.4 mg/dL (1.9-2.7) 01/07/18 04:10 Total Bilirubin 0.5 mg/dL (0.3-1.0) 01/09/18 04:15 AST 359 U/L (13-39) H 01/09/18 04:15 ALT 214 U/L (7-52) H 01/09/18 04:15 Alkaline Phosphatase 68 U/L (34-104) 01/09/18 04:15 Ammonia 55 umol/L (16-53) H 01/07/18 04:10 Total Protein 5.2 gm/dL (6.0-8.3) L 01/09/18 04:15 Albumin 2.8 gm/dL (4.2-5.5) L 01/09/18 04:15 Globulin 2.4 gm/dL 01/09/18 04:15 Albumin/Globulin Ratio 1.2 (1.0-1.8) 01/09/18 04:15 Amylase 498 U/L (29-103) H 01/07/18 04:10 Lipase 25 U/L (11-82) 01/07/18 04:10 TSH 0.46 uIU/ml (0.34-5.60) 01/06/18 14:30 Urine Source RANDOM 01/06/18 13:14 Urine Color ORANGE 01/06/18 13:14 Urine Clarity HAZY (CLEAR) 01/06/18 13:14 Urine pH 5.0 (4.6 - 8.0) 01/06/18 13:14 Ur Specific [place] >= 1.030 (1.005-1.030) 01/06/18 13:14 Urine Protein 100 mg/dL (NEGATIVE) H 01/06/18 13:14 Urine Glucose (UA) NEGATIVE mg/dL (NEGATIVE) 01/06/18 13:14 Urine Ketones NEGATIVE mg/dL (NEGATIVE) 01/06/18 13:14 Urine Blood LARGE (NEGATIVE) H 01/06/18 13:14 Urine Nitrate NEGATIVE (NEGATIVE) 01/06/18 13:14 Urine Bilirubin NEGATIVE (NEGATIVE) 01/06/18 13:14 Urine Urobilinogen 0.2 E.U./dL (0.2 - 1.0) 01/06/18 13:14 Ur Leukocyte Esterase NEGATIVE (NEGATIVE) 01/06/18 13:14 Urine RBC 5-10 /hpf (0-5) H 01/06/18 13:14 Urine WBC 0-2 /hpf (0-5) 01/06/18 13:14 Ur Epithelial Cells RARE /lpf (FEW) 01/06/18 13:14 Urine Bacteria NONE SEEN /hpf (NONE SEEN) 01/06/18 13:14 Ur Random Sodium 77 mmol/L 01/06/18 13:14 Urine Creatinine 104.0 mg/dl (39.0-259.0) 01/06/18 13:14 CSF Appearance CLEAR 01/06/18 10:08 CSF Color COLORLESS 01/06/18 10:08 CSF WBC 5 /cumm (0-5) 01/06/18 10:08 CSF RBC 11 /cumm (0-5) H 01/06/18 10:08 CSF Glucose 81 mg/dL (40-70) H 01/06/18 10:08 CSF Total Protein 28.4 mg/dL (15-130) 01/06/18 10:08 Salicylates < 25.0 mg/L (30.0-100.0) L 01/07/18 04:10 Urine Opiates Screen POSITIVE (NEGATIVE) H 01/06/18 13:14 Urine Methadone Screen NEGATIVE (NEGATIVE) 01/06/18 13:14 Acetaminophen < 10.0 ug/mL (10.0-30.0) L 01/07/18 04:10 Ur Barbiturates Screen NEGATIVE (NEGATIVE) 01/06/18 13:14 Ur Tricyclics Screen NEGATIVE (NEGATIVE) 01/06/18 13:14 Ur Phencyclidine Scrn NEGATIVE (NEGATIVE) 01/06/18 13:14 Amphetamines Screen POSITIVE (NEGATIVE) H 01/06/18 13:14 U Methamphetamines Scrn POSITIVE (NEGATIVE) H 01/06/18 13:14 U Benzodiazepines Scrn POSITIVE (NEGATIVE) H 01/06/18 13:14 U Cocaine Metab Screen NEGATIVE (NEGATIVE) 01/06/18 13:14 U Cannabinoids Screen POSITIVE (NEGATIVE) H 01/06/18 13:14 Ethyl Alcohol < 10 mg/dL (0-10) 01/06/18 07:55 Hepatitis A IgM Ab Negative (Negative) 01/07/18 04:10 Hep Bs Antigen Negative (Negative) 01/07/18 04:10 Hep B Core IgM Ab Negative (Negative) 01/07/18 04:10 Hepatitis C Antibody >11.0 s/co ratio (0.0-0.9) H 01/07/18 04:10 - Physical Exam Vitals and I&O: Vital Signs Temp 98.2 F 01/09/18 08:00 Pulse 72 01/09/18 08:00 Resp 18 01/09/18 08:24 BP 129/82 01/09/18 08:00 Pulse Ox 98 01/09/18 10:00 Intake & Output 01/08/18 01/09/18 01/09/18 18:59 06:59 18:59 Intake Total 1490 2751.666 Output Total 1601 2000 Balance -111 751.666 Weight (lbs) 71.577 kg 69.672 kg 69.4 kg Intake: Intake, IV Amount 150 1151.666 D5-0.9%Ns 1,000 ml @ 100 1051.666 mls/hr IV .Q10H PENDING [facility] TO [facility] Rx#: [id number] Piperacillin Sodium/ 150 100 Tazobact 3.375 gm In Sodium Chloride 0.9% 50 ml @ 100 mls/hr IV Q6HR [facility] Rx#:[id number] Oral 1240 1600 Other 100 Output: Urine 1600 2000 Stool 1 Other: # Voids 3 # Bowel Movements 1 Stool Characteristics Formed Weight Source Bedscale Bedscale Bedscale Active Medications: Current Medications Albuterol/Ipratropium (Duoneb Neb) 3 ml HHN [id number] [facility] Stop: 03/07/18 14:59 Last Admin: 01/09/18 07:48 Dose: 3 ml Budesonide (Pulmicort) 0.5 mg HHN BIDRT [facility] Stop: 03/07/18 18:59 Last Admin: 01/09/18 07:48 Dose: 0.5 mg Piperacillin Sod/Tazobactam (Sod 3.375 gm/ Sodium Chloride) 50 mls @ 100 mls/ hr IV Q6HR [facility] Stop: 03/07/18 11:59 Last Infusion: 01/09/18 06:41 Dose: Infused Lorazepam (Ativan) 2 mg IVP Q4HR PRN; Protocol PRN Reason: Agitation Stop: 03/07/18 14:54 Miscellaneous (Zosyn Iv Per Pharmacy) 1 ea MC PRN PRN PRN Reason: PROTOCOL Stop: 03/07/18 10:37 Pantoprazole Sodium (Protonix) 40 mg IVP QDAC [facility] Stop: 03/08/18 08:59 Last Admin: 01/09/18 06:41 Dose: 40 mg General: Alert, Oriented x3, No acute distress HEENT: Atraumatic Neck: Supple, no JVD, no Thyromegaly Cardiovascular: Regular rate, Normal S1, Normal S2 Lungs: Clear to auscultation Abdomen: Bowel sounds, Soft Extremities: no Clubbing, no Cyanosis, no Edema - Procedures Procedures: Procedures Procedure Code Date DRAINAGE OF SPINAL CANAL, PERCUTANEOUS APPROACH, DIAGNOSTIC [id number] 01/06/18 SPINAL FLUID TAP DIAGNOSTIC 28695 01/06/18 Assessment/Plan - Assessment Assessment: 1.Abnormal LFTs 2. Hep C Ab positive - Plan Plan: 1.Abnormal LFTs Most likely due to substance abuse. 2. Hep C Ab positive F/U as OPT D/w patient
--- NOTE | 2018-01-10 00:56 | Progress Notes ---
DATE: 01/09/2018 PROBLEM LIST: 1. Asthmatic bronchitis. 2. Illicit-drug dependency. SYMPTOMS: Nil, feeling okay. No coughing, wheezing or shortness of breath and no respiratory distress, etc. PHYSICAL EXAMINATION: ENT: Shows no new changes. CHEST: Shows clear with diminished air entry. LABORATORY DATA: White count is 16.3. ASSESSMENT: The patient clinically appears to be stable, possibly elevated blood count may be related to a steroid, which was given few days ago. PLANS AND SUGGESTIONS: Okay pulmonary garcia for discharge and will consider empiric antibiotic as an outpatient and go from there. Respiratory garcia okay to discharge. JOB# [id number]
[2018-01-10 04:57] LABS: % BASOPHILS 0.2 % (0.0-2.0); % EOSINOPHILS 0.6 % (0.0-5.0); % LYMPHOCYTES 29.2 % (20.0-50.0); % MONOCYTES 5.9 % (2.0-10.0); % NEUTROPHILS 64.1 % (40.0-80.0); EOSINOPHILE ABSOLUTE 0.1 Th/cmm (0.1-0.4); HEMATOCRIT 42.8 % (41.0-60); HEMOGLOBIN 14.1 gm/dL (12-16); LYMPHOCYTE ABSOLUTE 2.5 Th/cmm (1.5-3.0); MEAN CELL VOLUME 90.2 fl (80-99); MEAN CORPUSCULAR HEMOGLOBIN 29.8 pg (26.0-30.0); MEAN PLATELET VOLUME 8.4 fl; MONOCYTE ABSOLUTE 0.5 Th/cmm (0.3-1.0); NEUTROPHILE ABSOLUTE 5.3 Th/cmm (1.8-8.0); PLATELET COUNT 206 Th/cmm (150-400); RED BLOOD COUNT 4.75 Mil/cmm (4.30-5.70); RED CELL DISTRIBUTION WIDTH 12.8 % (11.5-20.0); WHITE BLOOD COUNT 8.4 Th/cmm (4.8-10.8)
[2018-01-10 05:06] LABS: ALB/GLOB RATIO 1.3 (1.0-1.8); ALKALINE PHOSPHATASE 68 U/L (34-104); ANION GAP 9.6 (7.0-16.0); BILIRUBIN,TOTAL 0.5 mg/dL (0.3-1.0); BUN - UREA NITROGEN 18 mg/dL (7-25); CALCIUM SERUM 8.7 mg/dL (8.6-10.3); CARBON DIOXIDE 27.3 mEq/L (21.0-31.0); CHLORIDE 103 mEq/L (98-107); GFR AFRICAN-AMERICAN > 60.0 ml/min (>90); GFR NON AFRICAN-AMERICAN > 60.0 ml/min; GLUCOSE 129 mg/dL (70-105); POTASSIUM SERUM 3.9 mEq/L (3.5-5.1); SGOT 269 U/L (13-39); SGPT/ALT 252 U/L (7-52); SODIUM SERUM 136 mEq/L (136-145); TOTAL PROTEIN,SERUM 5.4 gm/dL (6.0-8.3)
[2018-01-10] MEDS: Budesonide 0.5 Mg/2 mL Ud HHN SCH (07:13)
[2018-01-10] MEDS: Albuterol/Ipratropium Neb 3 ML AERS HHN SCH (07:13)
--- NOTE | 2018-01-10 08:29 | General Progress Note ---
Subjective - Review of Systems Service Date: 01/10/18 Subjective: Patient is more awake, alert today. No nausea no vomiting. off IV fluids. no acute distress. Objective - Results Result Diagrams: 01/10/18 04:30 01/10/18 04:30 Recent Labs: Laboratory Last Values WBC 8.4 Th/cmm (4.8-10.8) 01/10/18 04:30 RBC 4.75 Mil/cmm (4.30-5.70) 01/10/18 04:30 Hgb 14.1 gm/dL (12-16) 01/10/18 04:30 Hct 42.8 % (41.0-60) 01/10/18 04:30 MCV 90.2 fl (80-99) 01/10/18 04:30 MCH 29.8 pg (26.0-30.0) 01/10/18 04:30 MCHC Differential 33.0 pg (28.0-36.0) 01/10/18 04:30 RDW 12.8 % (11.5-20.0) 01/10/18 04:30 Plt Count 206 Th/cmm (150-400) 01/10/18 04:30 MPV 8.4 fl 01/10/18 04:30 Neutrophils % 64.1 % (40.0-80.0) 01/10/18 04:30 Band Neutrophils % 2 % (0-10) 01/09/18 04:15 Lymphocytes % 29.2 % (20.0-50.0) 01/10/18 04:30 Monocytes % 5.9 % (2.0-10.0) 01/10/18 04:30 Eosinophils % 0.6 % (0.0-5.0) 01/10/18 04:30 Basophils % 0.2 % (0.0-2.0) 01/10/18 04:30 Neutrophils (Manual) 91 % (40-80) H 01/09/18 04:15 Lymphocytes 4 % (20-50) L 01/09/18 04:15 Monocytes 3 % (2-10) 01/09/18 04:15 Eosinophils 0 % (0-5) 01/09/18 04:15 Basophils 0 % (0-3) 01/09/18 04:15 Platelet Estimate ADEQUATE (NORMAL) 01/08/18 04:14 Platelet Morphology NORMAL (NORMAL) 01/08/18 04:14 RBC Morph Micro Appear NORMAL (NORMAL) 01/08/18 04:14 Eos Smear Source URINE 01/06/18 13:14 Eos Smear Total Cells NONE SEEN (NONE SEEN) 01/06/18 13:14 PT 10.4 SECONDS (9.5-11.5) 01/07/18 04:10 INR 1.00 (0.5-1.4) 01/07/18 04:10 Specimen Source Arterial 01/07/18 09:42 Sample Site Right Radial 01/07/18 09:42 pH 7.40 (7.35-7.45) 01/07/18 09:42 pCO2 40.0 mmHg (35.0-45.0) 01/07/18 09:42 pO2 68.0 mmHg (80.0-100.0) L 01/07/18 09:42 HCO3 24.8 mEq/L (20.0-26.0) 01/07/18 09:42 Base Excess 0.0 mEq/L (-3.0-3.0) 01/07/18 09:42 O2 Saturation 93.0 % (92.0-100.0) 01/07/18 09:42 Suhail Test YES 01/07/18 09:42 Vent Rate NA 01/07/18 09:42 Inspired O2 21 01/07/18 09:42 Tidal Volume NA 01/07/18 09:42 PEEP NA 01/07/18 09:42 Pressure (ins/psv/peep) NA 01/07/18 09:42 Critical Value E.BAE 01/07/18 09:42 Sodium 136 mEq/L (136-145) 01/10/18 04:30 Potassium 3.9 mEq/L (3.5-5.1) 01/10/18 04:30 Chloride 103 mEq/L (98-107) 01/10/18 04:30 Carbon Dioxide 27.3 mEq/L (21.0-31.0) 01/10/18 04:30 Anion Gap 9.6 (7.0-16.0) 01/10/18 04:30 BUN 18 mg/dL (7-25) 01/10/18 04:30 Creatinine 1.0 mg/dL (0.7-1.3) 01/10/18 04:30 Est GFR ( Amer) > 60.0 ml/min (>90) 01/10/18 04:30 Est GFR (Non-Af Amer) > 60.0 ml/min 01/10/18 04:30 BUN/Creatinine Ratio 18.0 01/10/18 04:30 Glucose 129 mg/dL (70-105) H 01/10/18 04:30 Whole Bld Lactic Acid 2.19 mmol/L (0.60-1.99) H* 01/07/18 17:17 Calcium 8.7 mg/dL (8.6-10.3) 01/10/18 04:30 Phosphorus 2.9 mg/dL (2.5-5.0) 01/07/18 04:10 Magnesium 2.4 mg/dL (1.9-2.7) 01/07/18 04:10 Total Bilirubin 0.5 mg/dL (0.3-1.0) 01/10/18 04:30 AST 269 U/L (13-39) H 01/10/18 04:30 ALT 252 U/L (7-52) H 01/10/18 04:30 Alkaline Phosphatase 68 U/L (34-104) 01/10/18 04:30 Ammonia 55 umol/L (16-53) H 01/07/18 04:10 Total Protein 5.4 gm/dL (6.0-8.3) L 01/10/18 04:30 Albumin 3.0 gm/dL (4.2-5.5) L 01/10/18 04:30 Globulin 2.4 gm/dL 01/10/18 04:30 Albumin/Globulin Ratio 1.3 (1.0-1.8) 01/10/18 04:30 Amylase 498 U/L (29-103) H 01/07/18 04:10 Lipase 25 U/L (11-82) 01/07/18 04:10 TSH 0.46 uIU/ml (0.34-5.60) 01/06/18 14:30 Urine Source RANDOM 01/06/18 13:14 Urine Color ORANGE 01/06/18 13:14 Urine Clarity HAZY (CLEAR) 01/06/18 13:14 Urine pH 5.0 (4.6 - 8.0) 01/06/18 13:14 Ur Specific [place] >= 1.030 (1.005-1.030) 01/06/18 13:14 Urine Protein 100 mg/dL (NEGATIVE) H 01/06/18 13:14 Urine Glucose (UA) NEGATIVE mg/dL (NEGATIVE) 01/06/18 13:14 Urine Ketones NEGATIVE mg/dL (NEGATIVE) 01/06/18 13:14 Urine Blood LARGE (NEGATIVE) H 01/06/18 13:14 Urine Nitrate NEGATIVE (NEGATIVE) 01/06/18 13:14 Urine Bilirubin NEGATIVE (NEGATIVE) 01/06/18 13:14 Urine Urobilinogen 0.2 E.U./dL (0.2 - 1.0) 01/06/18 13:14 Ur Leukocyte Esterase NEGATIVE (NEGATIVE) 01/06/18 13:14 Urine RBC 5-10 /hpf (0-5) H 01/06/18 13:14 Urine WBC 0-2 /hpf (0-5) 01/06/18 13:14 Ur Epithelial Cells RARE /lpf (FEW) 01/06/18 13:14 Urine Bacteria NONE SEEN /hpf (NONE SEEN) 01/06/18 13:14 Ur Random Sodium 77 mmol/L 01/06/18 13:14 Urine Creatinine 104.0 mg/dl (39.0-259.0) 01/06/18 13:14 CSF Appearance CLEAR 01/06/18 10:08 CSF Color COLORLESS 01/06/18 10:08 CSF WBC 5 /cumm (0-5) 01/06/18 10:08 CSF RBC 11 /cumm (0-5) H 01/06/18 10:08 CSF Glucose 81 mg/dL (40-70) H 01/06/18 10:08 CSF Total Protein 28.4 mg/dL (15-130) 01/06/18 10:08 Salicylates < 25.0 mg/L (30.0-100.0) L 01/07/18 04:10 Urine Opiates Screen POSITIVE (NEGATIVE) H 01/06/18 13:14 Urine Methadone Screen NEGATIVE (NEGATIVE) 01/06/18 13:14 Acetaminophen < 10.0 ug/mL (10.0-30.0) L 01/07/18 04:10 Ur Barbiturates Screen NEGATIVE (NEGATIVE) 01/06/18 13:14 Ur Tricyclics Screen NEGATIVE (NEGATIVE) 01/06/18 13:14 Ur Phencyclidine Scrn NEGATIVE (NEGATIVE) 01/06/18 13:14 Amphetamines Screen POSITIVE (NEGATIVE) H 01/06/18 13:14 U Methamphetamines Scrn POSITIVE (NEGATIVE) H 01/06/18 13:14 U Benzodiazepines Scrn POSITIVE (NEGATIVE) H 01/06/18 13:14 U Cocaine Metab Screen NEGATIVE (NEGATIVE) 01/06/18 13:14 U Cannabinoids Screen POSITIVE (NEGATIVE) H 01/06/18 13:14 Ethyl Alcohol < 10 mg/dL (0-10) 01/06/18 07:55 Hepatitis A IgM Ab Negative (Negative) 01/07/18 04:10 Hep Bs Antigen Negative (Negative) 01/07/18 04:10 Hep B Core IgM Ab Negative (Negative) 01/07/18 04:10 Hepatitis C Antibody >11.0 s/co ratio (0.0-0.9) H 01/07/18 04:10 - Physical Exam Vitals and I&O: Vital Signs Temp 98.2 F 01/10/18 02:00 Pulse 76 01/10/18 07:14 Resp 17 01/10/18 07:14 BP 109/70 01/10/18 02:00 Pulse Ox 97 01/10/18 07:14 Intake & Output 01/09/18 01/10/18 01/10/18 18:59 06:59 18:59 Intake Total 2600 1600 Output Total 1725 2400 Balance 875 -800 Weight (lbs) 69.4 kg 69.4 kg Intake: Intake, IV Amount 100 100 Piperacillin Sodium/ 100 100 Tazobact 3.375 gm In Sodium Chloride 0.9% 50 ml @ 100 mls/hr IV Q6HR [facility] Rx#:[id number] Oral 2500 1500 Output: Urine 1725 2400 Other: # Bowel Movements 1 0 Weight Source Bedscale Bedscale Active Medications: Current Medications Albuterol/Ipratropium (Duoneb Neb) 3 ml HHN [id number] [facility] Stop: 03/07/18 14:59 Last Admin: 01/10/18 07:13 Dose: Not Given Budesonide (Pulmicort) 0.5 mg HHN BIDRT [facility] Stop: 03/07/18 18:59 Last Admin: 01/10/18 07:13 Dose: Not Given Piperacillin Sod/Tazobactam (Sod 3.375 gm/ Sodium Chloride) 50 mls @ 100 mls/ hr IV Q6HR [facility] Stop: 03/07/18 11:59 Last Infusion: 01/10/18 05:51 Dose: Infused Lorazepam (Ativan) 2 mg IVP Q4HR PRN; Protocol PRN Reason: Agitation Stop: 03/07/18 14:54 Miscellaneous (Zosyn Iv Per Pharmacy) 1 ea MC PRN PRN PRN Reason: PROTOCOL Stop: 03/07/18 10:37 Pantoprazole Sodium (Protonix) 40 mg IVP QDAC [facility] Stop: 03/08/18 08:59 Last Admin: 01/10/18 06:35 Dose: 40 mg General: Alert, Oriented x3, No acute distress HEENT: Atraumatic Neck: Supple, no JVD, no Thyromegaly Cardiovascular: Regular rate, Normal S1, Normal S2 Lungs: Clear to auscultation Abdomen: Bowel sounds, Soft Extremities: no Clubbing, no Cyanosis, no Edema Neurological: Sensation intact Psych/Mental Status: Mood NL - Procedures Procedures: Procedures Procedure Code Date DRAINAGE OF SPINAL CANAL, PERCUTANEOUS APPROACH, DIAGNOSTIC [id number] 01/06/18 SPINAL FLUID TAP DIAGNOSTIC 40914 01/06/18 Assessment/Plan - Assessment Assessment: ALOC secondary to multiple substance abuse improved. Encephalopathy improving +UDS PNA Leukocystosis w/ bandemia now resolved. Acute Renal insufficiency now resolved. UTI Hyperkalemia elevated LFTs secondary to Hep C+ acute on chronic hepatitis - Plan Plan: U/[facility] social media marketing specialist consult will DC home today, follow up with primary care physician
--- NOTE | 2018-01-10 10:16 | Consultation ---
DATE OF CONSULTATION: 01/08/2018 NEUROLOGY CONSULTATION HISTORY OF PRESENT ILLNESS: A 42-year-old. The patient admitted with history of ____. The patient was unresponsive, but much more awake and alert now. PAST MEDICAL HISTORY: No other major medical problems. SOCIAL HISTORY: ____ alcohol and drug abuse. MEDICATIONS: None. PHYSICAL EXAMINATION: VITAL SIGNS: Temperature 98.4, blood pressure 130/70, pulse is 78. NECK: Supple. No bruits. HEART: Sounds S1, S2. LUNGS: Clear. NEUROLOGIC: Awake, alert. Speech normal. CRANIAL: Pupils react to light. Full eye movement. No nystagmus. No facial weakness. MOTOR: She will lift both arms up and lifts both legs up. Reflexes are 1+ to 2. INVESTIGATIONS: Positive for opiates, amphetamine, methamphetamine, cocaine, and cannabis. IMPRESSION: 1. Encephalopathy, ____. 2. Drug abuse. PLAN: The patient recommend psychiatric evaluation. The patient will be referred for ____. JOB# [id number]
[2018-01-11 11:11] LABS: CERULOPLASMIN 25.2 mg/dL (16.0-31.0); MITOCHONDRIAL AB 5.6 Units (0.0-20.0)
== END 2018-01-10 11:00 | disposition home or self-care (01) | DRG 773 ==
LOC: EDBD 07:32 → ER 07:32 → ICU 10:58
PROVIDERS: ADMIT Family Medicine; ATTEND Family Medicine
PROC: 009U3ZX Drainage of Spinal Canal, Percutaneous Approach, Diagnostic (ICD-10-PCS; principal; 2018-01-06)
DX: F11.10 Opioid abuse, uncomplicated (principal); G93.40 Encephalopathy, unspecified; J18.9 Pneumonia, unspecified organism; N17.9 Acute kidney failure, unspecified; E87.2 Acidosis; B17.10 Acute hepatitis C without hepatic coma; E86.0 Dehydration; J45.909 Unspecified asthma, uncomplicated; E87.5 Hyperkalemia; N39.0 Urinary tract infection, site not specified; F17.210 Nicotine dependence, cigarettes, uncomplicated; F10.20 Alcohol dependence, uncomplicated; D72.825 Bandemia; B18.2 Chronic viral hepatitis C
CPT/HCPCS: 36415-UA; 36600-90; 70450-TC; 71045-TC; 71046-TC; 76700-TC; 76770-TC; 80048-TC; 80053-TC; 80074-90; 80307; 80320-TC; 80329-TC; 81001-TC; 81015-TC; 82103-90; 82140-TC; 82150-TC; 82390-90; 82570-TC; 82728-90; 82803-TC; 82945-TC; 83516-90; 83540-90; 83550-90; 83605; 83690-TC; 83735-TC; 84100-TC; 84157-TC; 84300-TC; 84443-TC; 85007-TC; 85025-TC; 85027-TC; 85610-TC; 86255-90; 87070-90; 87102-90; 87116-90; 87327-90; 89051-TC; 93005; 94640; 97971-TC-LT; C9113; J2543; J2920; J7030; J7042; Z7610